=== PATIENT | male | born 1945 | race Caucasian/White ===

== ENCOUNTER → 2023-03-23 09:28 | Outpatient (REF) | payer OTHER, SELFPAY ==
[2023-03-23 09:40] VITALS: BP 154/70; BP_SYST 77
[2023-03-23 10:17] VITALS: BP 110/59; BP_SYST 67
[2023-03-23 11:29] LABS: Body Fluid Mononuclear 81.9 %; Body Fluid Polymorphonuclear 18.1 %; Body Fluid WBC 553 /CUMM
[2023-03-23 11:31] LABS: Body Fluid Second Tech CF
== END ==
LOC: RADI 09:28
PROVIDERS: ATTENDING PHYSICIAN Surgery
DX: R18.8 Other ascites (principal)
CPT/HCPCS: 49083; 89051

== ENCOUNTER 2023-03-25 06:30 | Day surgery (SDC) | payer OTHER, SELFPAY ==
[2023-03-18 10:14] LABS: Hematocrit 38.2 % (39.0-52.0); Hemoglobin 13.3 g/dL (13.0-18.0); Mean Corp Hgb Conc. 34.8 g/dL (33.0-37.0); Mean Corpuscular Hgb 32.6 pg (27.0-31.0); Mean Corpuscular Volume 93.6 fL (80.0-94.0); Mean Platelet Volume 11.3 fL (7.4-10.4); Platelet Count 83 10^3/uL (130-400); Red Blood Cell Count 4.08 10^6/uL (4.70-6.10); Red Cell Dist. Width 13.4 % (11.5-14.5); White Blood Cell Count 5.2 10^3/uL (4.8-10.8)
[2023-03-18 10:40] LABS: ALT (SGPT) 36 U/L (0-50); AST (SGOT) 47 U/L (17-59); Albumin 3.5 g/dl (3.5-5.0); Alkaline Phosphatase 165 U/L (38-126); Blood Urea Nitrogen 12 mg/dl (9-20); Calcium 8.8 mg/dl (8.4-10.2); Carbon Dioxide 32 mmol/L (22-30); Chloride 102 mmol/L (98-107); Glucose 143 mg/dl (70-99); Potassium 4.1 mmol/L (3.5-5.1); Sodium 135 mmol/L (135-145); Total Bilirubin 1.4 mg/dl (0.2-1.3); Total Protein 8.3 g/dl (6.3-8.2); eGFR > 60.00
[2023-03-18 11:54] LABS: INR 1.24; PT 15.4 Sec (11.4-14.6)
[2023-03-18 11:55] LABS: APTT 46.8 Sec (23.4-35.0)
[2023-03-18 14:25] VITALS: BMI 24.1
--- NOTE | 2023-03-21 12:12 | PTCARENOTE ---
Patients 2/2 EKG abnormal- reviewed by Dr. Almaraz- no additional interventions required
[2023-03-25] VITALS (11 sets, daily range): BP systolic 108–152; BP diastolic 56–80; BMI 24.1
--- NOTE | 2023-03-25 07:26 | HP.FOC2 ---
Focused History & Physical
Chief Complaint
HPI:
Chief Complaint: Umbilical hernia, left inguinal hernia
HPI / Indication for Planned Procedure: Patient is a 78-year-old male presenting for scheduled operative correction symptomatic left inguinal and umbilical hernia. History of chronic liver disease with cirrhosis, stable but with ascites. Underwent
paracentesis earlier this week for preoperative optimization.
Relevant Past Medical History: Other (Cirrhosis, hypothyroidism, thrombocytopenia, DJD, hypertension, diabetes, portal hypertension, depression,)
Relevant Social History: Tobacco Use (Former smoker)
Relevant Family History: Negative
Relevant Past Surgical History: Positive for (Bilateral knee replacements, paracentesis)
Review of Systems
Review of Pertinent Systems: All Systems Negative
Medication
See Medication form for detailed medications: Yes
Medication List (including Herbals & OTC):
furosemide 20 mg tablet 20 mg PO DAILY 12/06/17
metformin 500 mg tablet 500 mg PO BID@0800,1700 12/06/17
sitagliptin phosphate 100 mg tablet (Januvia) 100 mg PO DAILY 02/22/18
aspirin 81 mg tablet,delayed release 81 mg PO DAILY 02/05/22
spironolactone 100 mg tablet 100 mg PO DAILY 02/05/22
ferrous sulfate 325 mg (65 mg iron) tablet (FeroSul) 325 mg PO DAILY #100 tabs 02/07/22
carvedilol 3.125 mg tablet 3.125 mg PO BID 03/23/23
cholecalciferol (vitamin D3) 25 mcg (1,000 unit) capsule (Vitamin D3) 25 mcg PO DAILY 03/23/23
pantoprazole 40 mg tablet,delayed release (Protonix) 40 mg PO DAILY 03/23/23
trazodone 50 mg tablet 25 mg PO HS 03/23/23
Medications Reviewed: Yes
Allergies and Reactions
Patient has Allergies: Yes
Noted Allergies and Reactions:
Allergy/AdvReac Type Severity Reaction Status Date / Time
alprazolam [From Xanax] Allergy NAUSEA/VOMI Verified 03/23/23 11:35
TING
aspirin Allergy bad for Verified 03/23/23 11:35
liver
oxycodone Allergy hallucinati Verified 03/23/23 11:35
ons
tramadol Allergy extreme Verified 03/23/23 11:35
nausea
Pertinent Physical Exam
All Other Systems: Negative
Head/Neck: Normal
Lungs: Normal
Heart: Normal
Abdomen: Other (Left inguinal hernia, umbilical hernia)
Extremities: Normal
Neurological: Normal
Diagnosis / Assessment
78-year-old male presenting for scheduled operative correction symptomatic left inguinal hernia and umbilical hernia
Plan / Procedure
Open left inguinal herniorrhaphy with mesh, open umbilical herniorrhaphy with mesh
Anesthesia/Sedation to be done by Anesthesia Provider: Yes
[2023-03-25] MEDS: TYLENOL 1000 MG PO (08:16)
[2023-03-25] MEDS: NORMOSOL-R 1000 IV (08:20)
[2023-03-25 08:27] LABS: Glucose - Point of Care 118 mg/dl (70-99)
--- NOTE | 2023-03-25 08:42 | W.SUR.PREOP ---
Pre-Operative Surgical Note
-
I have examined this patient prior to the performance of the scheduled procedure.
The patient's condition is unchanged from the time of the current History and
Physical and the patient is able to undergo the scheduled procedure.
--- NOTE | 2023-03-25 11:25 | W.IMMPOSTOP ---
Addendum entered and electronically signed by Patrice Bhatti MD 03/25/23 14:19:
#[id number]
Original Note:
Surgical Immed Post Op Note
-
Primary Surgeon: Magy
Assisting Surgeon: None
Pre-op Diagnosis: LIH
UH
Post-op Diagnosis: LIH - indirect
UH - 1.5cm
Procedure Performed: open LIH repair with mesh
open UHR with mesh
Anesthesia Type: LMA + 1%lido/0.25% marcaine
Specimen / Cultures: none
Estimated Blood Loss: 8mL
Complications: none immediate
Operative Findings: Left indirect inguinal hernia. Kaylan tension-free mesh repair with Bard soft mesh 7.5 cm x 15 cm trimmed to accommodate the inguinal space. No peritoneal entry during inguinal herniorrhaphy.
Open umbilical hernia repair, fascial defect 1.5 cm. Mesh utilized for repair with Ventralex ST 4 cm with strap placed in preperitoneal location. Some ascites noted during peritoneal mobilization. Closure of fascial defect with 0 PDS as well and
multilayer subcutaneous closure in an effort to minimize postoperative ascites leak risk.
Daughter updated postop via phone call
[2023-03-25 11:35] LABS: Glucose - Point of Care 120 mg/dl (70-99)
== END 2023-03-25 13:12 | disposition home or self-care (01) ==
LOC: SDS 06:30
PROVIDERS: ATTENDING PHYSICIAN Surgery; FAMILY PHYSICIAN Family Medicine
DX: K40.90 Unilateral inguinal hernia, without obstruction or gangrene, not specified as recurrent (principal); K42.9 Umbilical hernia without obstruction or gangrene
CPT/HCPCS: 49591; 49505; 36415; 80053; 82962; 85027; 85610; 85730; 86850; 86900; 86901; 93005; C1781

== ENCOUNTER → 2023-04-13 08:41 | Outpatient (REF) | payer OTHER, SELFPAY ==
[2023-04-13 09:19] LABS: % Basophils 0.7 % (0-2); % Eosinophils 5.8 % (0-6); % Immature Granulocytes 0.5 % (0-0.5); % Lymphocytes 16.5 % (20.5-51.1); % Monocytes 18.8 % (1.7-9.3); % Neutrophils 57.7 % (42.2-75.2); Absolute Eosinophils 0.3 10^3/uL (0-0.7); Absolute Lymphocytes 0.7 10^3/uL (1.2-3.4); Absolute Monocytes 0.8 10^3/uL (0.1-0.6); Absolute Neutrophils 2.5 10^3/uL (1.4-6.5); Hemoglobin 12.2 g/dL (13.0-18.0); Mean Corp Hgb Conc. 35.9 g/dL (33.0-37.0); Mean Corpuscular Hgb 32.4 pg (27.0-31.0); Mean Corpuscular Volume 90.2 fL (80.0-94.0); Mean Platelet Volume 10.4 fL (7.4-10.4); Nucleated Red Blood Cells % 0 % (-); Platelet Count 92 10^3/uL (130-400); Red Blood Cell Count 3.77 10^6/uL (4.70-6.10); Red Cell Dist. Width 13.3 % (11.5-14.5); White Blood Cell Count 4.3 10^3/uL (4.8-10.8)
[2023-04-13 09:35] LABS: INR 1.28
[2023-04-13 10:54] LABS: ALT (SGPT) 30 U/L (0-50); AST (SGOT) 46 U/L (17-59); Albumin 3.2 g/dl (3.5-5.0); Alkaline Phosphatase 142 U/L (38-126); Blood Urea Nitrogen 13 mg/dl (9-20); Calcium 8.6 mg/dl (8.4-10.2); Carbon Dioxide 24 mmol/L (22-30); Chloride 104 mmol/L (98-107); Glucose 114 mg/dl (70-99); Potassium 4.1 mmol/L (3.5-5.1); Sodium 133 mmol/L (135-145); Total Bilirubin 1.7 mg/dl (0.2-1.3); Total Protein 7.7 g/dl (6.3-8.2); eGFR > 60.00
== END ==
LOC: REG 08:41
PROVIDERS: ATTENDING PHYSICIAN Surgery; FAMILY PHYSICIAN Family Medicine
DX: Z09 Encounter for follow-up examination after completed treatment for conditions other than malignant neoplasm (principal); K70.31 Alcoholic cirrhosis of liver with ascites
CPT/HCPCS: 36415; 80053; 85025; 85610

== ENCOUNTER → 2023-04-14 10:23 | Outpatient (REF) | payer OTHER, SELFPAY ==
[2023-04-14 11:10] VITALS: BP 143/78; BP_SYST 83
[2023-04-14 11:54] VITALS: BP 125/66
[2023-04-14 12:26] LABS: Body Fluid Mononuclear 69 %; Body Fluid Polymorphonuclear 31 %; Body Fluid WBC 377 /CUMM
[2023-04-14 12:27] LABS: Body Fluid Second Tech SD
== END ==
LOC: RADI 10:23
PROVIDERS: ATTENDING PHYSICIAN Surgery; FAMILY PHYSICIAN Family Medicine
DX: R18.8 Other ascites (principal)
CPT/HCPCS: 49083; 89051

== ENCOUNTER → 2023-06-10 13:59 | Outpatient (REF) | payer OTHER, SELFPAY ==
[2023-06-10 14:19] VITALS: BP 140/71; BP_SYST 79
[2023-06-10 15:20] VITALS: BP 126/68
[2023-06-10 15:55] LABS: Body Fluid Mononuclear 83.6 %; Body Fluid Polymorphonuclear 16.4 %; Body Fluid WBC 202 /CUMM
[2023-06-10 15:56] LABS: Body Fluid Second Tech FB
== END ==
LOC: RADI 13:59
PROVIDERS: ATTENDING PHYSICIAN Internal Medicine Gastroenterology
DX: R18.8 Other ascites (principal)
CPT/HCPCS: 49083; 89051

== ENCOUNTER → 2023-06-27 08:01 | Outpatient (REF) | payer OTHER, SELFPAY ==
[2023-06-27 08:35] VITALS: BP 125/74; BP_SYST 70
[2023-06-27 09:28] VITALS: BP 133/60; BP_SYST 68
[2023-06-27 09:53] LABS: Body Fluid Mononuclear 79.6 %; Body Fluid Polymorphonuclear 20.4 %; Body Fluid WBC 181 /CUMM
[2023-06-27 10:05] LABS: Body Fluid Second Tech ASW
== END ==
LOC: RADI 08:01
PROVIDERS: ATTENDING PHYSICIAN Internal Medicine Gastroenterology; FAMILY PHYSICIAN Family Medicine
DX: R18.8 Other ascites (principal)
CPT/HCPCS: 49083; 89051

== ENCOUNTER → 2023-06-28 08:10 | Outpatient (REF) | payer OTHER, SELFPAY | LOC: PAVMRI 08:10 | PROVIDERS: ATTENDING PHYSICIAN Physician Assistant; FAMILY PHYSICIAN Family Medicine | DX: K70.31 Alcoholic cirrhosis of liver with ascites (principal) | CPT/HCPCS: 74183; A9581 ==

== ENCOUNTER → 2023-07-18 11:39 | Outpatient (REF) | payer OTHER, SELFPAY ==
[2023-07-18 12:49] LABS: % Basophils 0.2 % (0-2); % Eosinophils 1.4 % (0-6); % Immature Granulocytes 0.4 % (0-0.5); % Lymphocytes 9.6 % (20.5-51.1); % Neutrophils 75.4 % (42.2-75.2); Absolute Eosinophils 0.1 10^3/uL (0-0.7); Absolute Lymphocytes 0.5 10^3/uL (1.2-3.4); Absolute Monocytes 0.7 10^3/uL (0.1-0.6); Absolute Neutrophils 4.2 10^3/uL (1.4-6.5); Hematocrit 34.4 % (39.0-52.0); Hemoglobin 11.7 g/dL (13.0-18.0); Mean Corpuscular Hgb 32.1 pg (27.0-31.0); Mean Corpuscular Volume 94.2 fL (80.0-94.0); Mean Platelet Volume 11.1 fL (7.4-10.4); Nucleated Red Blood Cells % 0 % (-); Platelet Count 99 10^3/uL (130-400); Red Blood Cell Count 3.65 10^6/uL (4.70-6.10); Red Cell Dist. Width 15.4 % (11.5-14.5); White Blood Cell Count 5.5 10^3/uL (4.8-10.8)
[2023-07-18 13:00] LABS: INR 1.29
[2023-07-18 13:15] LABS: ALT (SGPT) 54 U/L (0-50); AST (SGOT) 98 U/L (17-59); Alkaline Phosphatase 255 U/L (38-126); Blood Urea Nitrogen 47 mg/dl (9-20); Calcium 8.9 mg/dl (8.4-10.2); Carbon Dioxide 27 mmol/L (22-30); Chloride 102 mmol/L (98-107); Glucose 194 mg/dl (70-99); Potassium 4.8 mmol/L (3.5-5.1); Sodium 135 mmol/L (135-145); Total Protein 7.8 g/dl (6.3-8.2); eGFR 51.77
[2023-07-18 21:07] LABS: AFP Male/Tumor Marker 1.35 ng/ml
== END ==
LOC: REG 11:39
PROVIDERS: Internal Medicine Gastroenterology; ATTENDING PHYSICIAN Physician Assistant; FAMILY PHYSICIAN Family Medicine
DX: K70.31 Alcoholic cirrhosis of liver with ascites (principal); Z09 Encounter for follow-up examination after completed treatment for conditions other than malignant neoplasm
CPT/HCPCS: 36415; 80053; 82105; 85025; 85610

== ENCOUNTER → 2023-07-19 07:30 | Outpatient (REF) | payer OTHER, SELFPAY ==
[2023-07-19 07:45] VITALS: BP 112/69; BP_SYST 71
[2023-07-19 08:55] VITALS: BP 111/57; BP_SYST 61
[2023-07-19 09:16] VITALS: BP 111/57
[2023-07-19 10:35] LABS: Body Fluid Polymorphonuclear 13.6 %; Body Fluid WBC 103 /CUMM
[2023-07-19 10:36] LABS: Body Fluid Mononuclear 86.4 %
[2023-07-19 11:47] LABS: Body Fluid Second Tech CMB
== END ==
LOC: RADI 07:30
PROVIDERS: ATTENDING PHYSICIAN Internal Medicine Gastroenterology; FAMILY PHYSICIAN Family Medicine
DX: R18.8 Other ascites (principal)
CPT/HCPCS: 49083; 89051

== ENCOUNTER 2023-07-19 09:12 | Outpatient (RCR) | payer OTHER, SELFPAY ==
[2023-07-19 09:20] VITALS: BP 94/46
[2023-07-19 09:38] VITALS: BP 94/46
[2023-07-19] MEDS: FLEXBUMIN 100 IV ×2 (09:38→11:03)
[2023-07-19 11:03] VITALS: BP 113/56
[2023-07-19 12:31] VITALS: BP 104/58
[2023-07-19] MEDS: FLEXBUMIN 50 IV (12:31)
[2023-07-19 13:15] VITALS: BP 113/56
== END 2023-08-14 23:59 | disposition home or self-care (01) ==
LOC: OID 09:12
PROVIDERS: ATTENDING PHYSICIAN Internal Medicine Gastroenterology; FAMILY PHYSICIAN Family Medicine
DX: K70.31 Alcoholic cirrhosis of liver with ascites (principal); I85.00 Esophageal varices without bleeding
CPT/HCPCS: 96365; 96366; P9047

== ENCOUNTER 2023-08-11 14:33 | Emergency (ER) | payer OTHER, SELFPAY ==
[2023-08-11 14:35] VITALS: BP 102/60
[2023-08-11 16:32] LABS: % Basophils 0.2 % (0-2); % Eosinophils 1.5 % (0-6); % Immature Granulocytes 0.2 % (0-0.5); % Lymphocytes 7.2 % (20.5-51.1); % Monocytes 11.5 % (1.7-9.3); % Neutrophils 79.4 % (42.2-75.2); Absolute Eosinophils 0.1 10^3/uL (0-0.7); Absolute Lymphocytes 0.4 10^3/uL (1.2-3.4); Absolute Monocytes 0.7 10^3/uL (0.1-0.6); Absolute Neutrophils 4.7 10^3/uL (1.4-6.5); Hematocrit 28.9 % (39.0-52.0); Hemoglobin 10.1 g/dL (13.0-18.0); Mean Corp Hgb Conc. 34.9 g/dL (33.0-37.0); Mean Corpuscular Hgb 32.7 pg (27.0-31.0); Mean Corpuscular Volume 93.5 fL (80.0-94.0); Mean Platelet Volume 10.2 fL (7.4-10.4); Nucleated Red Blood Cells % 0 % (-); Platelet Count 66 10^3/uL (130-400); Red Blood Cell Count 3.09 10^6/uL (4.70-6.10); Red Cell Dist. Width 14.7 % (11.5-14.5); White Blood Cell Count 5.9 10^3/uL (4.8-10.8)
[2023-08-11 16:43] LABS: ALT (SGPT) 55 U/L (0-50); AST (SGOT) 70 U/L (17-59); Alkaline Phosphatase 247 U/L (38-126); Ammonia 21 umol/L (9-30); Blood Urea Nitrogen 31 mg/dl (9-20); Calcium 8.8 mg/dl (8.4-10.2); Carbon Dioxide 22 mmol/L (22-30); Chloride 108 mmol/L (98-107); Glucose 137 mg/dl (70-99); Potassium 5.2 mmol/L (3.5-5.1); Sodium 134 mmol/L (135-145); Total Bilirubin 2.1 mg/dl (0.2-1.3); Total Protein 7.5 g/dl (6.3-8.2); eGFR > 60.00
[2023-08-11] MEDS: KEFLEX 500 MG PO (17:38)
[2023-08-11] MEDS: ADACEL 0.5 ML IM (17:38)
--- NOTE | 2023-08-11 18:55 | ED.GENMED ---
History of Present Illness
General
Chief Complaint: Fall
Source: patient and family
Exam Limitations: none
Time Seen by Provider: 08/11/23 15:04
Nursing documentation reviewed up to this point in time: agreed with
History of Present Illness
History of Present Illness:
78-year-old male with past medical history of paroxysmal A-fib not currently on anticoagulation, liver cirrhosis previous alcoholism, diabetes presenting to the emergency department today with concerns after a fall ground-level fall where he got
tripped up at his knees bilaterally has been able to ambulate since denies any head trauma also according to family he has been compulsively buying things and has been acting oddly recently. He denies any concerns in this regard. Denies nausea
vomiting chest pain shortness of breath. Numbness weakness.
Past History
Past History
ED Past Medical History: Arrthythmia (afib), NIDDM, Other (OA) and Other (alcohol related cirrhosis)
ED Past Surgical History: Orthopedic ( B TKA 02/28/18)
Social History
Alcohol: Former
Personal:
Living: with family
Review of Systems
Review of Systems
Allergies reviewed?: Yes
All Other Systems: ROS reviewed and negative except as documented in HPI and ROS
Phy Exam
Physical Exam
Physical Exam:
GENERAL: Alert , in no apparent distress
EYE: pupils equal and reactive
NECK: Supple, no significant adenopathy.
ENT: o/p clr, mmm.
CARDIAC: Regular rate and rhythm .
LUNGS: Clear breath sounds bilaterally, no acute respiratory distress, no wheezes/rales/rhonchi
ABDOMEN: Soft, without focal tenderness, no r/g, no cvat
NEUROLOGICAL: Alert and oriented, no focal neuro deficits
SKIN: Superficial abrasions overlying the patella bilaterally good range of motion of the knees bilaterally. No redness or warmth mild tenderness. Warm and dry, skin intact.
MUSCULOSKELETAL: No edema, well perfused.
PSYCH: Normal and appropriate interaction.
Course
Orders/Labs/Results
Orders:
Orders
08/11/23 15:33
EKG [Electrocardiogram (*1)] Urgent
Reason for Study: Fatigue / Weakness
CT Head W/o Iv Contrast Urgent
Comment:
Reason For Exam: AMS
Urinalysis Reflex To Culture Urgent
08/11/23 15:35
EKG- Treatment ONCE
08/11/23 15:36
Knee, Left 4 or More Views [CR Knee - Left 4 Or More View*] Urgent
Comment:
Reason For Exam: knee pain after fall
Knee, Right 4 or More Views [CR Knee- Right 4 Or More View*] Urgent
Comment:
Reason For Exam: knee pain after fall
08/11/23 16:19
Ammonia Urgent
CBC/With Diff [Complete Blood Count/With Diff] Urgent
CMP [Comprehensive Metabolic Panel] Urgent
08/11/23 17:06
Crisis Consult Urgent
Reason for Consult: odd behavior per family
Pt Eval And Treat Urgent
Activity Level: Ambulate
08/11/23 17:10
Cephalexin Monohydrate [Keflex] 500 mg PO NOW STA
Tetanus/Diphth/Acelpertussis [Adacel] 0.5 ml IM .ONCE ONE
Abnormal Lab Results
08/11/23
16:19
RBC 3.09 L 10^6/uL
(4.70-6.10)
Hgb 10.1 L g/dL
(13.0-18.0)
Hct 28.9 L %
(39.0-52.0)
MCH 32.7 H pg
(27.0-31.0)
RDW 14.7 H %
(11.5-14.5)
Plt Count 66 L 10^3/uL
(130-400)
Absolute Lymphs (auto) 0.4 L 10^3/uL
(1.2-3.4)
Absolute Monos (auto) 0.7 H 10^3/uL
(0.1-0.6)
Neutrophils % 79.4 H %
(42.2-75.2)
Lymphocytes % 7.2 L %
(20.5-51.1)
Monocytes % 11.5 H %
(1.7-9.3)
Sodium 134 L mmol/L
(135-145)
Potassium 5.2 H mmol/L
(3.5-5.1)
Chloride 108 H mmol/L
(98-107)
BUN 31 H mg/dl
(9-20)
Glucose 137 H mg/dl
(70-99)
Total Bilirubin 2.1 H mg/dl
(0.2-1.3)
AST 70 H U/L
(17-59)
ALT 55 H U/L
(0-50)
Alkaline Phosphatase 247 H U/L
(38-126)
Albumin 3.0 L g/dl
(3.5-5.0)
08/11/23 16:19
08/11/23 16:19
Vital Signs
Initial and Last Documented VS:
Initial Vital Signs
Temp Pulse Resp BP Pulse Ox
97.8 F 78 18 102/60 96
08/11/23 14:35 08/11/23 14:35 08/11/23 14:35 08/11/23 14:35 08/11/23 14:35
Last Documented Vital Signs
Temp Pulse Resp BP Pulse Ox
97.8 F 78 18 102/60 96
08/11/23 14:35 08/11/23 14:35 08/11/23 14:35 08/11/23 14:35 08/11/23 14:35
MDM/Problems Addressed
MDM/Problems Addressed:
78-year-old male presenting to the emergency department today with concerns after a ground-level fall hitting both knees. Good range of motion of the knees but tenderness to the area superficial abrasions will start on Keflex also given a tetanus
shot x-rays without signs of fracture. Additionally primary care doctor as well as the daughter is concerned that he has been acting somewhat oddly recently though he is fully alert and oriented here and denies any concerns of this nature. He was
willing to get a head CT and labs that did not show any emergent findings. Otherwise case was discussed with the primary care doctor who will have him closely follow-up as an outpatient. He was initially seen by the food service worker and he denied
wanting any additional resources.
*Critical Care Note
Total Time (30-74mins, 75-104mins- exclusive of procedures): Not Applicable
ED Attending Note
-
Portions of this chart may have been created with voice recognition software.� Occasional wrong word or��sound alike� substitutions may have occurred due to the inherent limitations of voice recognition software.
Discharge Plan
Departure
Patient Disposition: Home (Routine Discharge)
Date of Disposition: 08/11/23
Time of Disposition: 18:55
Patient with high blood pressure during this ER visit?: No
Condition: Good
Covid-19: Not Applicable
Discharge Problem:
Injury of knee, Abrasion of skin, Fall
Instructions: Wound Care (DC), Contusion (DC)
Prescriptions:
New
cephalexin 500 mg capsule
500 mg PO Q8H 3 Days Qty: 9 0RF
No Action
metformin 500 MG tablet
500 mg PO BID@0800,1700
furosemide 20 MG tablet
40 mg PO DAILY
Januvia 100 MG tablet
100 mg PO DAILY
spironolactone 100 mg tablet
100 mg PO DAILY
ferrous sulfate [FeroSul] 325 mg (65 mg iron) Tablet
325 mg PO DAILY Qty: 100 0RF
ibuprofen 200 mg tablet
400 mg PO Q6HPRN PRN (Reason: moderate pain) Qty: 1 0RF
trazodone 50 mg Tablet
25 mg PO HS
carvedilol 3.125 mg Tablet
3.125 mg PO BID
cholecalciferol (vitamin D3) [Vitamin D3] 25 mcg (1,000 unit) Capsule
25 mcg PO DAILY
pantoprazole [Protonix] 40 mg tablet,delayed release (DR/EC)
40 mg PO DAILY
Referrals:
Carlos Chaparro MD [Family Provider] -
Activity Restrictions/Additional Instructions:
You came to the emergency department today after a fall. You additionally had a metabolic workup that did not show any specific emergent findings you had a slightly high potassium slightly low sodium level. You had slightly elevated liver function
tests. He had a head CT without emergent findings x-rays without signs of fracture. Please take the antibiotic to reduce risk of infection of your scrapes on your knees please keep the area clean and covered. Return to the emergency department
any worsening, new or concerning symptoms.
Interventions
Interventions:
*Risk Screen - Suicide Last Done: 08/11/23 14:35
*General Assessment Last Done: 08/11/23 14:35
*Neglect/Abuse Screening Last Done: 08/11/23 14:35
ED- Fall Risk Assessment Last Done: 08/11/23 18:30
*ED COVID-19 Vaccine History Last Done: 08/11/23 14:35
ED-Musculoskeletal Assessment Last Done: 08/11/23 14:48
ED- Neurological Assessment Last Done: 08/11/23 14:48
ED-Skin Assessment Last Done: 08/11/23 14:57
Discharge Date and Time
Print Language: OCCITAN
== END 2023-08-11 19:23 | disposition home or self-care (01) ==
LOC: EMR 14:33
PROVIDERS: Physician Assistant; EMERGENCY PHYSICIAN Emergency Medicine; FAMILY PHYSICIAN Family Medicine
DX: S89.91XA Unspecified injury of right lower leg, initial encounter (principal); S80.219A Abrasion, unspecified knee, initial encounter; W19.XXXA Unspecified fall, initial encounter; Z23 Encounter for immunization; I48.91 Unspecified atrial fibrillation; E11.9 Type 2 diabetes mellitus without complications; M19.90 Unspecified osteoarthritis, unspecified site; K70.30 Alcoholic cirrhosis of liver without ascites; R20.0 Anesthesia of skin; Z96.653 Presence of artificial knee joint, bilateral
CPT/HCPCS: 99284; 90471; 70450; 73564; 80053; 82140; 85025; 90715; 93005

== ENCOUNTER → 2023-08-16 06:34 | Outpatient (REF) | payer OTHER, SELFPAY ==
[2023-08-16 07:15] VITALS: BP 155/78; BP_SYST 82
[2023-08-16 08:32] VITALS: BP 106/59; BP_SYST 80
[2023-08-16 08:40] VITALS: BP 106/59
[2023-08-16 11:07] LABS: Body Fluid Polymorphonuclear 38.8 %; Body Fluid WBC 142 /CUMM
[2023-08-16 11:08] LABS: Body Fluid Mononuclear 61.2 %
[2023-08-16 11:14] LABS: Body Fluid Second Tech HB
== END ==
LOC: RADI 06:34
PROVIDERS: ATTENDING PHYSICIAN Internal Medicine Gastroenterology
DX: R18.8 Other ascites (principal)
CPT/HCPCS: 49083; 89051

== ENCOUNTER 2023-08-16 08:49 | Outpatient (RCR) | payer OTHER, SELFPAY ==
[2023-08-16] MEDS: FLEXBUMIN 50 IV (09:05)
[2023-08-16 09:06] VITALS: BP 101/52
[2023-08-16 10:02] VITALS: BP 113/57
[2023-08-16] MEDS: FLEXBUMIN 100 IV ×2 (10:02→11:38)
[2023-08-16 11:38] VITALS: BP 106/55
[2023-08-16 13:16] VITALS: BP 102/54
== END 2023-09-14 23:59 | disposition home or self-care (01) ==
LOC: OID 08:49
PROVIDERS: ATTENDING PHYSICIAN Internal Medicine Gastroenterology; PRIMARYCARE PHYSICIAN Family Medicine
DX: K70.31 Alcoholic cirrhosis of liver with ascites (principal); I85.00 Esophageal varices without bleeding
CPT/HCPCS: 49083; 89051; 96365; 96366; P9047

== ENCOUNTER 2023-08-29 07:34 | Inpatient (IN) | payer OTHER, SELFPAY ==
[2023-08-29] VITALS (14 sets, daily range): BP systolic 80–105; BP diastolic 41–63; BMI 23.1
--- NOTE | 2023-08-29 04:16 | ED.GENMED ---
History of Present Illness
<FANNY Flores - Last Filed: 08/29/23 06:01>
General
Chief Complaint: Breathing Problem
Source: patient
Exam Limitations: none
Time Seen by Provider: 08/29/23 04:07
Nursing documentation reviewed up to this point in time: agreed with
History of Present Illness
History of Present Illness:
78 year old male presents for evaluation of shortness of breath. Pt reports that approximately 3-4 hours ago he began experiencing SOB which he describes as 'difficulty catching my breath.' Pt has a history of alcoholic cirrhosis complicated by
ascites; recently underwent paracentesis on 08/15 via [facility]. Pt also underwent paracentesis in July and April of 2023. Pt currently exhibiting abdominal distension due to ascites fluid. Also with several blisters on feet and redness of distal
right lower extremity. He denies CP, N/V, dysphagia, fever, cough, recent URI, urinary symptoms, changes in bowel habits, and confusion.
Past History
<FANNY Flores - Last Filed: 08/29/23 06:01>
Past History
ED Past Medical History: Arrthythmia (afib), NIDDM, Other (OA) and Other (alcohol related cirrhosis)
ED Past Surgical History: Orthopedic ( B TKA 02/28/18)
Social History
Alcohol: Former
Personal:
Living: with family
Review of Systems
<FANNY Flores - Last Filed: 08/29/23 06:01>
Review of Systems
Allergies reviewed?: Yes
Constitutional: Reports no symptoms
EENT: Reports no symptoms
Respiratory: Reports trouble breathing
Cardiac: Reports no symptoms
ABD/GI: Reports other (distended abdomen due to ascites )
: Reports no symptoms
Musculoskeletal: Reports no symptoms
Skin: Reports no symptoms
Neurological: Reports no symptoms
Endocrine: Reports no symptoms
Hematologic/Lymphatic: Reports no symptoms
Psychiatric: Reports no symptoms
Phy Exam
<FANNY Flores - Last Filed: 08/29/23 06:01>
General Physical Exam
General Presentation: well appearing
General age: appears stated age
General Skin: warm
General Habitus: elderly and frail
General Mental: alert
General Hydration: appears well hydrated
Cardiovascular Exam
Cardiovascular Exam: regular rate/rhythm
Pulmonary Exam
Pulmonary Exam: no respiratory distress and other (faint crackles in lower lobes BL)
Gastrointestinal Exam
Gastrointestinal Exam: ascites and distended
Neurological Exam
Neurological Exam: alert and oriented x3
Skin Exam
Skin Exam: erythema (Right lower extremity ) and other (Several ulcers on pt's left and right feet. Brawny erythema on right anterior lower extremity. Single abrasion on left and right knees due to previous fall in various stages of healing. )
Scores
<FANNY Flores - Last Filed: 08/29/23 06:01>
Heart Failure Risk
Heart Failure Risk Score: Not Applicable
Course
<FANNY Flores - Last Filed: 08/29/23 06:01>
Orders/Labs/Results
Orders:
Orders
08/29/23 04:34
Electrocardiogram (*1) Urgent
Reason for Study: Shortness of Breath
EKG- Treatment ONCE
08/29/23 04:35
Complete Blood Count/With Diff Urgent
Comprehensive Metabolic Panel Urgent
Lipase Urgent
NT-proBNP Urgent
Protime/PTT Urgent
Troponin I Urgent
CR Chest - 2 Views Urgent
Comment:
Reason For Exam: sob
08/29/23 05:02
Consult Interventional Radiology [IRAD CONSULT] Urgent
Consulting Provider: Kenny Lam
Was physician already notified: No
Reason for Consult/Procedure: recurrent, symptomatic ascites
Acknowledgement that appropriate orders are entered: Yes
08/29/23 05:05
Consult Notification Routine
Specialty to Notify: IRAD (Interventional Radiology)
08/29/23 05:21
Lactic Acid Urgent
Blood Culture Urgent
YANIRA Source: Blood/Venous
Specimen Description:
Abnormal Lab Results
08/29/23 08/29/23
04:35 05:21
RBC 2.99 L 10^6/uL
(4.70-6.10)
Hgb 10.1 L g/dL
(13.0-18.0)
Hct 28.1 L %
(39.0-52.0)
MCH 33.8 H pg
(27.0-31.0)
RDW 15.1 H %
(11.5-14.5)
Plt Count 76 L 10^3/uL
(130-400)
MPV 12.1 H fL
(7.4-10.4)
Abs Immat Gran (auto) 0.1 H 10^3/uL
(0-0.05)
Absolute Neuts (auto) 7.9 H 10^3/uL
(1.4-6.5)
Absolute Lymphs (auto) 0.4 L 10^3/uL
(1.2-3.4)
Immature Gran % 0.6 H %
(0-0.5)
Neutrophils % 87.7 H %
(42.2-75.2)
Lymphocytes % 4.3 L %
(20.5-51.1)
PT 19.5 H Sec
(11.4-14.6)
APTT 58.7 H Sec
(23.4-35.0)
Sodium 133 L mmol/L
(135-145)
Carbon Dioxide 18 L mmol/L
(22-30)
BUN 61 H mg/dl
(9-20)
Creatinine 2.7 H mg/dL
(0.7-1.3)
Glucose 134 H mg/dl
(70-99)
Lactic Acid 3.3 H mmol/L
(0.7-2.0)
Total Bilirubin 1.9 H mg/dl
(0.2-1.3)
Alkaline Phosphatase 202 H U/L
(38-126)
Albumin 2.6 L g/dl
(3.5-5.0)
Lipase 327 H U/L
(23-300)
08/29/23 04:35
08/29/23 04:35
Vital Signs
Initial and Last Documented VS:
Initial Vital Signs
Temp Pulse Resp BP Pulse Ox
97.4 F 89 17 87/48 94
08/29/23 04:06 08/29/23 04:06 08/29/23 04:06 08/29/23 04:06 08/29/23 04:06
Last Documented Vital Signs
Temp Pulse Resp BP Pulse Ox
97.4 F 86 18 93/63 96
08/29/23 04:06 08/29/23 05:11 08/29/23 05:11 08/29/23 05:11 08/29/23 05:11
<Milagro Juarez, DO - Last Filed: 08/29/23 05:55>
Orders/Labs/Results
Orders:
Orders
08/29/23 04:34
Electrocardiogram (*1) Urgent
Reason for Study: Shortness of Breath
EKG- Treatment ONCE
08/29/23 04:35
Complete Blood Count/With Diff Urgent
Comprehensive Metabolic Panel Urgent
Lipase Urgent
NT-proBNP Urgent
Protime/PTT Urgent
Troponin I Urgent
CR Chest - 2 Views Urgent
Comment:
Reason For Exam: sob
08/29/23 05:02
Consult Interventional Radiology [[facility] CONSULT] Urgent
Consulting Provider: Kenny Lam
Was physician already notified: No
Reason for Consult/Procedure: recurrent, symptomatic ascites
Acknowledgement that appropriate orders are entered: Yes
08/29/23 05:05
Consult Notification Routine
Specialty to Notify: IRAD (Interventional Radiology)
08/29/23 05:21
Lactic Acid Urgent
Blood Culture Urgent
YANIRA Source: Blood/Venous
Specimen Description:
Abnormal Lab Results
08/29/23 08/29/23
04:35 05:21
RBC 2.99 L 10^6/uL
(4.70-6.10)
Hgb 10.1 L g/dL
(13.0-18.0)
Hct 28.1 L %
(39.0-52.0)
MCH 33.8 H pg
(27.0-31.0)
RDW 15.1 H %
(11.5-14.5)
Plt Count 76 L 10^3/uL
(130-400)
MPV 12.1 H fL
(7.4-10.4)
Abs Immat Gran (auto) 0.1 H 10^3/uL
(0-0.05)
Absolute Neuts (auto) 7.9 H 10^3/uL
(1.4-6.5)
Absolute Lymphs (auto) 0.4 L 10^3/uL
(1.2-3.4)
Immature Gran % 0.6 H %
(0-0.5)
Neutrophils % 87.7 H %
(42.2-75.2)
Lymphocytes % 4.3 L %
(20.5-51.1)
PT 19.5 H Sec
(11.4-14.6)
APTT 58.7 H Sec
(23.4-35.0)
Sodium 133 L mmol/L
(135-145)
Carbon Dioxide 18 L mmol/L
(22-30)
BUN 61 H mg/dl
(9-20)
Creatinine 2.7 H mg/dL
(0.7-1.3)
Glucose 134 H mg/dl
(70-99)
Lactic Acid 3.3 H mmol/L
(0.7-2.0)
Total Bilirubin 1.9 H mg/dl
(0.2-1.3)
Alkaline Phosphatase 202 H U/L
(38-126)
Albumin 2.6 L g/dl
(3.5-5.0)
Lipase 327 H U/L
(23-300)
08/29/23 04:35
08/29/23 04:35
Vital Signs
Initial and Last Documented VS:
Initial Vital Signs
Temp Pulse Resp BP Pulse Ox
97.4 F 89 17 87/48 94
08/29/23 04:06 08/29/23 04:06 08/29/23 04:06 08/29/23 04:06 08/29/23 04:06
Last Documented Vital Signs
Temp Pulse Resp BP Pulse Ox
97.4 F 86 18 93/63 96
08/29/23 04:06 08/29/23 05:11 08/29/23 05:11 08/29/23 05:11 08/29/23 05:11
Rachellt;FANNY Flores - Last Filed: 08/29/23 06:01>
MDM/Problems Addressed
Differential Diagnosis Includes:
symptomatic ascites, hepatorenal syndrome, PNA, anemia
<FANNY Flores - Last Filed: 08/29/23 06:01>
*Critical Care Note
Total Time (30-74mins, 75-104mins- exclusive of procedures): Not Applicable
<Milagro Juarez DO - Last Filed: 08/29/23 05:55>
*Radiology
Radiology exam reviewed: preliminary read by ED provider (Chest x-ray shows markedly limited lung expansion related to severe ascites. No evidence of infiltrate nor CHF.)
*Pulse Oximetry
Patient hypoxic: no
*EKG
Interpreted by ED Provider?: Yes
Comparison EKG: no changes (Unchanged from previous July 2023)
Rate: normal
Rhythm: sinus
[place]: left axis deviation
Interval: first degree heart block
QRS Pattern: right bundle branch block
Ischemia: non-specific ST changes
*Household Assistant Interpretation
Rate: normal
Interpretation: normal
Rhythm: sinus
*Critical Care Note
Total Time (30-74mins, 75-104mins- exclusive of procedures): Not Applicable
ED Attending Note
<FANNY Flores - Last Filed: 08/29/23 06:01>
-
Portions of this chart may have been created with voice recognition software.� Occasional wrong word or��sound alike� substitutions may have occurred due to the inherent limitations of voice recognition software.
<Mliagro Juarez DO - Last Filed: 08/29/23 05:55>
ED Attending Note
Patient seen and examined by attending physician: Yes
I performed the substantive portion of visit, reviewed & personally made and approve the management plan that is documented in note by myself or UMM.: Yes
ED Attending Note:
This is a 78-year-old gentleman who has history of alcoholic cirrhosis with recurrent ascites requiring sporadic paracentesis. History of Lannec's cirrhosis. He had undergone paracentesis February and then April of this year with drainage of
approximately 4 L of fluid. He then required paracentesis July 18 with drainage of near 10 L of fluid and then again August 15 with removal of 10 L of fluid.
He complains of shortness of breath, feeling that he cannot take a deep breath that began last night, worse with lying down. He has not had a cough nor fever, he denies abdominal pain and denies feeling of tenseness of his abdomen.
He has been compliant with diuretics including furosemide and spironolactone, compliant with low-sodium diet.
He denies chest pain or palpitations, no weakness nor dizziness.
No prior episodes of dyspnea, difficulty taking a deep breath.
He did suffer a trip and fall August 10 with resultant bilateral anterior knee abrasions, evaluated in this ED at that time. Bilateral knee abrasions are slowly healing.
He also notes chronic superficial ulcers left leg and a friction ulcer left plantar foot at first MTP joint that he attributes to his sandals rubbing. The left lower leg has some brawny erythema and is mildly warm to touch. It is unclear if this
is chronic in nature. Patient denies pain and has not been running a fever.
He follows regularly with GI, Dr. Kathryn Hardy.
He is also followed regularly with his PCP, Dr. Jer Wan who is also a friend of his.
He resides at home with his who has advanced Alzheimer's disease, currently on hospice care. His daughter resides nearby.
GENERAL: 78-year-old gentleman appears somewhat older than stated age, mildly frail in appearance. He is awake and alert, pleasant, easily communicative. Very mild resting tachypnea is noted but able to speak in full sentences. Mild hypotension
noted. Afebrile. Room air pulse ox 94 to 95%.
EYE: anicteric
NECK: Supple, nontender, no meningismus, no significant adenopathy. No JVD.
ENT: oral mucosa is minimally dry. No rhinorrhea.
CARDIAC: Regular rate and rhythm. no murmur.
LUNGS: Mild resting tachypnea, able to speak in full sentences. Scant bibasilar rales otherwise clear to auscultation.
ABDOMEN: Significantly distended with positive palpable fluid wave. Nontender. Normoactive bowel sounds.
NEUROLOGICAL: Alert and oriented x3, no focal neuro deficits.
SKIN: Warm and dry, mildly pale in color, left lower extremity has several small superficial ulcers with focal dry eschar, few linear scabbed abrasions anterior lower leg. There is a superficial friction ulcer left plantar foot at the first MTP
joint with very minimal local erythema. There is moderate erythema to the left anteromedial lower leg that is mildly warm to touch. No palpable tenderness. No lymphangitis. There is subacute abrasions with mild ulcer formation bilateral anterior
knees. No erythema.
MUSCULOSKELETAL: No C/C/E. Diminished peripheral pulses bilateral DP and posterior tibial. No palpable tenderness.
PSYCH: Normal and appropriate interaction.
I highly suspect recurrent severe symptomatic ascites. Must consider CHF, less likely pneumonia.
Will check labs, chest x-ray, EKG.
There are some brawny erythema left lower leg surrounding what appears to be some chronic very superficial skin ulcers left leg. At this point is unclear if this erythema is chronic in nature versus acute. He is afebrile but mildly hypotensive.
Will check lactic acid and will check blood cultures as well.
With chronic liver disease, ascites he is certainly at risk for immunocompromise.
Will plan for IR consult this morning for paracentesis.
08/29/2023 0552 AM
Labs show stable chronic anemia, stable chronic thrombocytopenia. Normal white blood cell count however uptrend in neutrophils compared to previous.
BUN and creatinine have trended up significantly from 31/1.2 to now 61/2.7. I have significant concern for hepatorenal syndrome versus concern for early sepsis.
Lactic acid is elevated at 3.3.
Will admit to hospitalist service. Will initiate IV antibiotics for coverage of what I suspect is left lower extremity cellulitis.
Consult placed for IR.
Discharge Plan
Departure
Patient Disposition: Admit
Date of Disposition: 08/29/23
Time of Disposition: 05:51
Admit to: Med/Surg
Admit to doctor: Ester
Presentation/result/management discussed w/ accepting MD/DO: Hospitalist
Discharge Problem:
Recurrent symptomatic ascites, Cellulitis of left lower extremity, ARF, concern for hepatorenal syndrome, Lactic acidosis, r/o sepsis
Prescriptions:
No Action
metformin 500 MG tablet
500 mg PO BID
furosemide 20 MG tablet
40 mg PO DAILY
Januvia 100 MG tablet
100 mg PO DAILY
spironolactone 100 mg tablet
100 mg PO DAILY
ferrous sulfate [FeroSul] 325 mg (65 mg iron) Tablet
325 mg PO DAILY Qty: 100 0RF
trazodone 50 mg Tablet
50 mg PO HS PRN (Reason: sleep)
carvedilol 3.125 mg Tablet
3.125 mg PO BID
cholecalciferol (vitamin D3) [Vitamin D3] 25 mcg (1,000 unit) Capsule
25 mcg PO DAILY
pantoprazole [Protonix] 40 mg tablet,delayed release (DR/EC)
40 mg PO DAILY
Referrals:
Carlos Chaparro MD [Family Provider] -
Interventions
Interventions:
*Risk Screen - Suicide Last Done: 08/29/23 04:06
*General Assessment Last Done: 08/29/23 04:06
*Neglect/Abuse Screening Last Done: 08/29/23 04:06
ED- Fall Risk Assessment Last Done: 08/29/23 04:35
*ED COVID-19 Vaccine History Last Done: 08/29/23 04:06
ED- Cardiac Assessment Last Done: 08/29/23 04:35
ED- Pulmonary Assessment Last Done: 08/29/23 04:35
Discharge Date and Time
Print Language: LAO
--- NOTE | 2023-08-29 04:45 | EDRN ---
Pt lives with his daughter and his who he says is on palliative care. Pt says he had 10L removed from his abdomen earlier in August. He knows when he has to go to the bathroom but he often cannot get to the bathroom in time. Pt arrived
incontinent of soft brown stool - some was caked around his penis/scrotum. Perineal care provided. Linens changed and pt placed into hospital gown. Pt has multiple healing abrasions on L lower leg/foot from a recent fall. Pt says he uses a
wooden cane at home.
[2023-08-29 04:49] LABS: % Basophils 0.2 % (0-2); % Eosinophils 0.7 % (0-6); % Immature Granulocytes 0.6 % (0-0.5); % Lymphocytes 4.3 % (20.5-51.1); % Monocytes 6.5 % (1.7-9.3); % Neutrophils 87.7 % (42.2-75.2); Absolute Eosinophils 0.1 10^3/uL (0-0.7); Absolute Immature Granulocytes 0.1 10^3/uL (0-0.05); Absolute Lymphocytes 0.4 10^3/uL (1.2-3.4); Absolute Monocytes 0.6 10^3/uL (0.1-0.6); Absolute Neutrophils 7.9 10^3/uL (1.4-6.5); Hematocrit 28.1 % (39.0-52.0); Hemoglobin 10.1 g/dL (13.0-18.0); Mean Corp Hgb Conc. 35.9 g/dL (33.0-37.0); Mean Corpuscular Hgb 33.8 pg (27.0-31.0); Mean Platelet Volume 12.1 fL (7.4-10.4); Nucleated Red Blood Cells % 0 % (-); Platelet Count 76 10^3/uL (130-400); Red Blood Cell Count 2.99 10^6/uL (4.70-6.10); Red Cell Dist. Width 15.1 % (11.5-14.5)
[2023-08-29 05:02] LABS: INR 1.67; PT 19.5 Sec (11.4-14.6)
[2023-08-29 05:03] LABS: ALT (SGPT) 36 U/L (0-50); APTT 58.7 Sec (23.4-35.0); AST (SGOT) 42 U/L (17-59); Albumin 2.6 g/dl (3.5-5.0); Alkaline Phosphatase 202 U/L (38-126); Blood Urea Nitrogen 61 mg/dl (9-20); Calcium 8.7 mg/dl (8.4-10.2); Carbon Dioxide 18 mmol/L (22-30); Chloride 104 mmol/L (98-107); Estimated Creatinine Clearance 23 ml/min; Glucose 134 mg/dl (70-99); Lipase 327 U/L (23-300); Potassium 4.7 mmol/L (3.5-5.1); Sodium 133 mmol/L (135-145); Total Bilirubin 1.9 mg/dl (0.2-1.3); Total Protein 6.5 g/dl (6.3-8.2); eGFR 23.54
[2023-08-29 05:15] LABS: NT-proBNP 3440 pg/ml; Troponin I < 0.012 ng/ml
[2023-08-29 05:45] LABS: Lactic Acid 3.3 mmol/L (0.7-2.0)
--- NOTE | 2023-08-29 05:51 | HPS.HSE ---
Family Physician
-
Family Physician: Carlos Chaparro
Chief Complaint
-
SOB
History of Present Illness
The patient is a 78 yo male with PMH significant for alcohol cirrhosis, recurrent ascites, esophageal varices, type 2 DM, skin cancer, nodular regenerative hyperplasia of liver, depression, HTN, DJD, retinal vein occlusion, CHF, atrial fib, RBBB,
who presents to the ED due to difficulty catching his breath that started 3-4 hours prior to arrival to the ED, worse SOB with lying down. He had paracentesis on 08/15 with GI, Dr. Hardy (10 L removed), and prior to that had paracentesis July and April
2023 with drainage of approximately 4 L of fluid. He takes Lasix and Spironolactone and is compliant with these medications. His abdomen is distended in the ED and he also is noted to have redness of distal right lower extremity associated with
blisters on his left foot.
No CP, no f/c/n/v, no URI symptoms, no dysuria, no change in mental status. He does not take Lactulose. He has not had an alcohol drink in 30 years. He feels dehydrated, drinks one glass of water and one cup of coffee daily.
IR was consulted from the ED for paracentesis , not notified yet.
Medical History
Past Medical History
Past Medical History: Reports Other
Additional Past Medical History:
DM, ETOH cirrhosis, ascites, esophageal varices, skin cancer, nodular regenerative hyperplasia of liver, depression, HTN, DJD, retinal vein occlusion, CHF, atrial fibrillation
Past Surgical History: Reports Other
Additional Past Surgical History:
b/l TKA
Social History
Tobacco: Former Smoker
Alcohol: Former
Drug: None
Personal:
Living: With Family
Employment: Retired
Family History
Family History: Not pertinent
Allergies / Home Medications
Allergies reflects when Allergies were last updated in [facility].
Home Medications with original date entered in [facility]
Allergy/Medication List:
Allergies
Allergy/AdvReac Type Severity Reaction Status Date / Time
alprazolam [From Xanax] Allergy NAUSEA/VOMI Verified 08/29/23 05:00
TING
aspirin Allergy bad for Verified 08/29/23 05:00
liver
oxycodone Allergy hallucinati Verified 08/29/23 05:00
ons
tramadol Allergy extreme Verified 08/29/23 05:00
nausea
Home Medications
furosemide 20 mg tablet 40 mg PO DAILY 12/06/17
metformin 500 mg tablet 500 mg PO BID 12/06/17
sitagliptin phosphate 100 mg tablet (Januvia) 100 mg PO DAILY 02/22/18
spironolactone 100 mg tablet 100 mg PO DAILY 02/05/22
ferrous sulfate 325 mg (65 mg iron) tablet (FeroSul) 325 mg PO DAILY #100 tabs 02/07/22
carvedilol 3.125 mg tablet 3.125 mg PO BID 03/23/23
cholecalciferol (vitamin D3) 25 mcg (1,000 unit) capsule (Vitamin D3) 25 mcg PO DAILY 03/23/23
pantoprazole 40 mg tablet,delayed release (Protonix) 40 mg PO DAILY 03/23/23
trazodone 50 mg tablet 50 mg PO HS PRN sleep 03/23/23
Review of Systems
-
A 12 point ROS was completed and negative except as noted: Yes
Physical Exam
Vital Signs
Vital Signs
Temp Pulse Resp BP Pulse Ox
97.4 F 86 18 93/63 96
08/29/23 04:06 08/29/23 05:11 08/29/23 05:11 08/29/23 05:11 08/29/23 05:11
Physical Exam
General: Appears Chronically Ill
HEENT: NormoCephalic, Anicteric and Other (dry mucosa)
Respiratory: Clear
Cardiac: S1/S2 and Regular Rhythm
GI: Other (fluid wave, large ascites, no tenderness)
Musculoskeletal: No Clubbing, No Cyanosis and No Edema
Skin: Warm and Lesions (blister, dry on bottom of left foot, excoriations left ankle, erythema left ankle)
Neuro: AO x 3, No Motor Deficits and Nonfocal/grossly intact
Psych: Calm
Laboratory Results
-
08/29/23 04:35
08/29/23 04:35
Laboratory Results
PT 19.5 Sec (11.4-14.6) H 08/29/23 04:35
INR 1.67 08/29/23 04:35
APTT 58.7 Sec (23.4-35.0) H 08/29/23 04:35
Lactic Acid 3.3 mmol/L (0.7-2.0) H 08/29/23 05:21
Total Bilirubin 1.9 mg/dl (0.2-1.3) H 08/29/23 04:35
AST 42 U/L (17-59) 08/29/23 04:35
ALT 36 U/L (0-50) 08/29/23 04:35
Alkaline Phosphatase 202 U/L (38-126) H 08/29/23 04:35
Troponin I < 0.012 ng/ml 08/29/23 04:35
Lipase 327 U/L (23-300) H 08/29/23 04:35
Data Reviewed
-
Diagnostic Radiology: Image Personally Visualized and interpreted (CXR poor inspiratory effort)
Impression/Plan
-
IMPRESSION:
#Recurrent severe symptomatic ascites
-IR consultation placed and discussed with IR, for paracentesis, ordered peritoneal fluid labs/cultures, will likely require albumin post paracentesis
-GI consultation appreciated
-hold PO Lasix for now pending procedure and monitor BP, hold spironolactone for now
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
-likely contributing to low BP
-Lipase mildly elevated 327
-INR 1.67, Na 133, Tbili 1.9, Alb 2.6
#MAURILIO Creat 2.6 (baseline is closer to 1.0)
concern for hepatorenal syndrome, likely multifactorial due to cirrhosis, volume depletion, possible sepsis from cellulitis
-Nephro Cx appreciated
-IV fluid bolus 500 mL in ED, and IVF after that at 80 mL per hour for now
-albumin per protocol with IR/Paracentesis pending
#Esophageal Varices, history of, no active bleeding
#LLE cellulitis, concern for sepsis due to infection versus less likely SBP
-LA 3.3
-serial LA level
-blood cultures
-Continue IV Zosyn, which will also cover possible SBP
#Thrombocytopenia, chronic platelets 76 and similar to previous value
-monitor repeat labs in am
#Type 2 DM
-glucose stable, continue Januvia
-hold Metformin
#Depression
# HTN, holding BP meds for now pending paracentesis and fluids
-monitor closely
# DJD
# Retinal vein occlusion, history of
#CHF, likely volume depleted at this time, not in exacerbation
#Atrial fibrillation
-cont low dose BB with hold parameters
-monitor on tele
DVT proph-PCSs
Full Code
[2023-08-29] MEDS: ZOSYN 50 IV ×4 (06:17→23:31)
[2023-08-29] MEDS: NSS 500 IV ×2 (08:03→23:31)
--- NOTE | 2023-08-29 09:30 | PTCARENOTE ---
Received patient from ED into 2139. Patient AAOx3, assist x2 with RW, states using single point cane at home. VSS, NSR on campus monitor, L foot blister and abrasions covered with foams, wound care consulted. Dietary consulted per patient request
for appetite/hydration recommendations. Bed alarm in place, patient oriented to room and call saxena. Patient to IR for paracentesis.
[2023-08-29] MEDS: VITAMIN D3 (cholecalciferol) 25 MCG PO (09:36)
[2023-08-29] MEDS: FEOSOL 325 MG PO (09:36)
[2023-08-29] MEDS: JANUVIA 100 MG PO (09:36)
[2023-08-29] MEDS: PROTONIX 40 MG PO (09:36)
[2023-08-29] MEDS: COREG 3.125 MG PO (09:36)
[2023-08-29] MEDS: NSS 1000 IV (09:37)
[2023-08-29 11:30] LABS: Body Fluid WBC 5742 /CUMM
[2023-08-29 11:31] LABS: Body Fluid Mononuclear 13.5 %; Body Fluid Polymorphonuclear 86.5 %
--- NOTE | 2023-08-29 11:38 | W.PN.HOSP.TC ---
Today's Communication/Plan
-
Nonbillable note
Monitor vital signs see plan
IR for para today
Continue antibiotics
Monitor renal function
Assessment / Plan
Assessment / Plan
General: Appears Chronically Ill
HEENT: NormoCephalic, Anicteric and Other (dry mucosa)
Respiratory: Clear
Cardiac: S1/S2 and Regular Rhythm
GI: Other (fluid wave, large ascites, no tenderness)
Musculoskeletal: No Clubbing, No Cyanosis and No Edema
Skin: Warm and Lesions (blister, dry on bottom of left foot, excoriations left ankle, erythema left ankle)
Neuro: AO x 3, No Motor Deficits and Nonfocal/grossly intact
Psych: Calm
Recurrent severe symptomatic ascites
s/p 10L para 7/5; follow labs. give albumin
GI following
-hold PO Lasix and monitor BP, hold spironolactone for now
monitor for SBP
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
-likely contributing to low BP
-Lipase mildly elevated 327
-INR 1.67, Na 133, Tbili 1.9, Alb 2.6
#renal insufficiency Creat 2.6 (baseline is closer to 1.0)
concern for hepatorenal syndrome, likely multifactorial due to cirrhosis, volume depletion, possible sepsis from cellulitis
-Nephro Cx appreciated
dc further fluids
cw albumin; monitor
nephrology evaluation
#Esophageal Varices, history of, no active bleeding
#LLE cellulitis
Lactic acidosis, trend lactate
-blood cultures
-Continue IV Zosyn, which will also cover possible SBP
#Thrombocytopenia, chronic platelets 76 and similar to previous value
#Type 2 DM
-glucose stable, continue Januvia
-hold Metformin
#Depression
# HTN, holding BP meds for now pending paracentesis and fluids
-monitor closely
# DJD
# Retinal vein occlusion, history of
#CHF, not in exacerbation
#Atrial fibrillation,paroxysmal
-cont low dose BB with hold parameters
-monitor on tele
DVT proph-SCD's
Full Code
Anticipated Discharge: > 48 hours
Subjective/Interval History
-
Date of Service: August 29, 2023
denies pain
Objective Data
-
Labs:
Laboratory Results
08/29/23
04:35
WBC 9.0
Hgb 10.1 L
Hct 28.1 L
Plt Count 76 L
PT 19.5 H
INR 1.67
APTT 58.7 H
Sodium 133 L
Potassium 4.7
Chloride 104
Carbon Dioxide 18 L
BUN 61 H
Creatinine 2.7 H
Glucose 134 H
Calcium 8.7
Total Bilirubin 1.9 H
AST 42
ALT 36
Alkaline Phosphatase 202 H
Vital Signs:
Vital Signs
Temp Pulse Resp BP Pulse Ox
97.5 F 80 14 80/53 99
08/29/23 08:06 08/29/23 11:33 08/29/23 11:33 08/29/23 11:33 08/29/23 10:16
[2023-08-29 11:39] LABS: Body Fluid Second Tech CF
[2023-08-29 12:01] LABS: Body Fluid Albumin < 1.0 g/dl; Body Fluid Amylase 31 U/L; Body Fluid LDH 406 U/L; Body Fluid Protein < 2.0 g/dl
[2023-08-29 12:03] LABS: Glucose - Point of Care 142 mg/dl (70-99)
[2023-08-29] MEDS: NOVOLOG FLEXPEN-LOW RESISTANCE SC (12:15)
--- NOTE | 2023-08-29 13:12 | PTCARENOTE ---
Received patient s/p paracentesis, BP 86/47, NSR on pvc monitor. Bandaid C/D/I on LLQ. Patient states no concerns, states improvement in SOB after paracentesis. MD made aware of BP, midodrine and albumin ordered.
--- NOTE | 2023-08-29 13:15 | CON.GI ---
Addendum entered and electronically signed by Evgeny Lay MD 08/29/23 16:19:
I saw and examined the patient.
The ASSIGNMENT AGENT or PA's note was reviewed and I agree with the note.
Comment:
This patient has a history of alcoholic cirrhosis, recurrent ascites, esophageal varices who was admitted for abdominal distention and recurrent ascites and was admitted for a paracentesis in which 10 L were taken off. Found to have SBP and does
have renal dysfunction. He does have a history of alcohol abuse but quit over 30 years ago.
abd: ascites, soft
impression:
cirrhosis
ascites
SBP
MAURILIO
plan:
antibiotics
repeat tap in a few days
hold diuretics
trend creatinine, nephro following
continued alcohol abstinence
already f/u with us as outpatient
Original Note:
Consultation
-
Date/Time Consultation Requested: 08/29/23 0900
Date/Time Consultation Performed: 08/29/23 1315
Requesting Provider: Josette Norman DO
Performing Provider: ED Smiley, Evgeny Lay MD
Reason for Consultation: ascites, shortness of breath
Medical History
Chief Complaint / HPI
Chief Complaint: dark stools
History of Present Illness:
Pt is a 78yo with hx ETOH cirrhosis, recurrent ascites, esophageal varices, nodular regenerative hyperplasia of liver, afib, DM, skin CA, HTN, retinal occlusion,, RBBB presents to ER with shortness of breath with lying down. Had 10 liter
paracentesis on 08/15 and now repeat today for another 10 liter tap. In reviewing with patient he has longstanding hx cirrhosis from ETOH for years. He quit ETOH 30 years ago and distant hx hepatology eval with no need for transplant. He did have
period of possible liver mass but further review of imaging not cancer related. Per records he began with need for paracentesis in March just prior to hernia repair. Prior to that he was managed with diuretic therapy. He was also noted with
some recent fall and mental status issue with ER visit in July that are now improved. He is also noted + SBP on admission.
He currently admits to shortness of breath on admission with abdominal distention now improved since para this am. He denies dysphagia, odynophagia, nausea, vomiting, abdominal pain, diarrhea, constipation or rectal bleeding. He has hx
attempted colonoscopy with difficulty with prep in past and EGD 2021 with grade II EV no recent bleeding, grade A esophagitis, mild gastritis normal duodenum.
Past Medical History
Past Medical History: Arrhythmias (afib, RBBB), Cancer (skin CA), Hypothyroidism, Psychiatric (depression) and Other (DM, ETOH cirrhosis, ascites, esophageal varices/prior GI bleed, portal HTN, skin cancer, nodular regenerative hyperplasia of liver,
thrombocytopenia, depression, HTN, DJD, retinal vein occlusion, hypothyroidism, CHF, gallstones, liver mass )
Past Surgical History: Orthopedic (b/l TKA) and Other (Moh's surgery, hernia repair with mesh )
Social History
Tobacco: Former Smoker (quit 40 + years )
Alcohol: Former (Stopped 30 years ago )
Drug: None
Personal:
Living: With Family (lives with (who has dementia))
Employment: Retired (former health care administrative tech.)
Family History
Family History: Other (GP- lung cancer. No GI cancers)
Allergies / Home Medications
Allergy/AdvReac Type Severity Reaction Status Date / Time
alprazolam [From Xanax] Allergy NAUSEA/VOMI Verified 08/29/23 05:00
TING
aspirin Allergy bad for Verified 08/29/23 05:00
liver
oxycodone Allergy hallucinati Verified 08/29/23 05:00
ons
tramadol Allergy extreme Verified 08/29/23 05:00
nausea
�Medication �Instructions �Recorded
furosemide 20 mg tablet 40 mg PO DAILY 12/06/17
metformin 500 mg tablet 500 mg PO BID 12/06/17
sitagliptin phosphate 100 mg 100 mg PO DAILY 02/22/18
tablet (Januvia)
spironolactone 100 mg tablet 100 mg PO DAILY 02/05/22
ferrous sulfate 325 mg (65 mg 325 mg PO DAILY #100 tabs 02/07/22
iron) tablet (FeroSul)
carvedilol 3.125 mg tablet 3.125 mg PO BID 03/23/23
cholecalciferol (vitamin D3) 25 25 mcg PO DAILY 03/23/23
mcg (1,000 unit) capsule (Vitamin
D3)
pantoprazole 40 mg tablet,delayed 40 mg PO DAILY 03/23/23
release (Protonix)
trazodone 50 mg tablet 50 mg PO HS PRN sleep 03/23/23
Review of Systems
-
History Source: Patient
Constitutional: Reports Other (wt up and down with para)
EENT: Reports No Symptoms
Respiratory: Reports Trouble Breathing (on admission now improved )
Cardiac: Reports No Symptoms
Abdomen/GI: Reports Abdominal Pain (with distention on admission )
: Reports No Symptoms
Musculoskeletal: Reports No Symptoms
Skin: Reports No Symptoms
Neurological: Reports Weakness
Endocrine: Reports No Symptoms
Hematologic/Lymphatic: Reports No Symptoms
Vital Signs
Temp Pulse Resp BP Pulse Ox
97.5 F 80 18 86/47 97
08/29/23 08:06 08/29/23 12:03 08/29/23 12:03 08/29/23 12:03 08/29/23 12:27
Physical Exam
Exam
General: Other (thin appearing )
HEENT: Normocephalic and Anicteric
Respiratory: Other (decreased bases )
Cardiac: Regular Rhythm
GI: Soft, Tender (minimal ) and Distended
Musculoskeletal: No Clubbing and No Cyanosis
Skin: Warm and Dry
Neuro: Awake, Alert, AO x 3 and Other (no asterixis )
Psych: Calm
Results
WBC 9.0 10^3/uL (4.8-10.8) 08/29/23 04:35
Hgb 10.1 g/dL (13.0-18.0) L 08/29/23 04:35
Hct 28.1 % (39.0-52.0) L 08/29/23 04:35
MCV 94.0 fL (80.0-94.0) 08/29/23 04:35
Plt Count 76 10^3/uL (130-400) L 08/29/23 04:35
Absolute Neuts (auto) 7.9 10^3/uL (1.4-6.5) H 08/29/23 04:35
PT 19.5 Sec (11.4-14.6) H 08/29/23 04:35
INR 1.67 08/29/23 04:35
APTT 58.7 Sec (23.4-35.0) H 08/29/23 04:35
Sodium 133 mmol/L (135-145) L 08/29/23 04:35
Potassium 4.7 mmol/L (3.5-5.1) 08/29/23 04:35
Chloride 104 mmol/L (98-107) 08/29/23 04:35
Carbon Dioxide 18 mmol/L (22-30) L 08/29/23 04:35
BUN 61 mg/dl (9-20) H 08/29/23 04:35
Creatinine 2.7 mg/dL (0.7-1.3) H 08/29/23 04:35
Calcium 8.7 mg/dl (8.4-10.2) 08/29/23 04:35
Total Bilirubin 1.9 mg/dl (0.2-1.3) H 08/29/23 04:35
AST 42 U/L (17-59) 08/29/23 04:35
ALT 36 U/L (0-50) 08/29/23 04:35
Alkaline Phosphatase 202 U/L (38-126) H 08/29/23 04:35
Lipase 327 U/L (23-300) H 08/29/23 04:35
Diagnostic Image Results:
paracentesis 07/18- 9150ml, 08/15- 10 liters, 08/28 - 10 liters
06/2023 MR Abdomen W/o & W Contrast
1. Large volume abdominopelvic ascites.
2. Severe hepatic cirrhosis without MRI evidence for a liver lesion that is suspicious for hepatocellular carcinoma.
3. Splenomegaly.
4. Cholelithiasis.
08/11/23 HCT No acute intracranial abnormality noted.
Prior GI Procedures:
EGD: 2021 shanae with grade II EV no recent bleeding, grade A esophagitis, mild gastritis normal duodenum.
Colonoscopy: hx attempted colonoscopy with difficulty with prep in past
Assessment / Plan
-
Pt is a 78yo with hx ETOH cirrhosis, recurrent ascites, esophageal varices, nodular regenerative hyperplasia of liver, afib, DM, skin CA, HTN, retinal occlusion, RBBB presents to ER with shortness of breath with lying down. Had 10 liter
paracentesis on 08/15 and now repeat today for another 10 liter tap. In reviewing with patient he has longstanding hx cirrhosis from ETOH for years. He quit ETOH 30 years ago and distant hx hepatology eval with no need for transplant. He did have
period of possible liver mass but further review of imaging not cancer related. Per records he began with need for paracentesis in March just prior to hernia repair. Prior to that he was managed with diuretic therapy. He was also noted with
some recent fall and mental status issue with ER visit in July that are now improved. He is also noted with + SBP on admission.
-intractable ascites
-SBP
-hx ETOH cirrhosis quit ETOH 30 years ago
-MAURILIO
-elevated lactate level
-EV/portal HTN
-nodular regnerative hyperplasia
-recent fall with change in mental status changes with ER eval in July
other medical problems:
-afib not on anticoagulation
-DM
-skin CA
-HTN
-retinal occlusion
-thrombocytopenia
-retinal vein occlusion
-hypothyroidism
-cholelithiasis
PLAN:
Pt with worsening renal dysfunction and worsening ascites despite diuretics
repeat tap on admission for 10 liters now with + SBP
will given 100 gram albumin 1.5 gram today then will need 75gram again day 3 (08/30)-- reviewed with nursing and pharmacy for orders
pt also getting albumin RTC for MAURILIO
cont abx
consider repeat tap 2-3 day to reassess for improvement
trend creat for renal eval
diuretics on hold
HCC screening with MRI in June, with AFP 1.35 in July
MELD 3.0 27 on admission driven by MAURILIO
Pt due 09/21 with Sydni méndez for follow up
reviewed with Dr. Edmond
-
-
-
Thank you for consultation and allowing me to participate in the patient's care. Please call the wagon washer GI physician during the after hours with any questions or concerns.
[2023-08-29] MEDS: ProAmatine 5 MG PO ×2 (13:55→18:25)
[2023-08-29] MEDS: FLEXBUMIN 100 IV ×4 (13:56→18:54)
--- NOTE | 2023-08-29 14:19 | W.CON.NEPH ---
Consultation
-
Date/Time Consultation Requested: 08/29/2023 8:58AM
Date/Time Consultation Performed: 08/29/2023 4:05PM
Requesting Provider: Josette Norman
Performing Provider: April Jo
Reason for Consultation: MAURILIO
Medical History
-
Chief Complaint: MAURILIO
History of Present Illness:
Mr. Wiley is a 78YOM with PMH of alcohol cirrhosis, recurrent ascites, esophageal varices, type 2 DM, skin cancer, nodular regenerative hyperplasia of liver, depression, HTN, DJD, retinal vein occlusion, CHF, atrial fib, RBBB, who presented to
the ED due to difficulty catching his breath that started 3-4 hours prior to arrival to the ED, worse SOB with lying down. He gets recurrent paracentesis, last in August 15 with GI and had 10L removed. He also had nando in with 4L removed.
He takes lasix/keyshawn and is compliant with these meds. He had a very distended abdomen and went for a para with IR today. His shortness of breath is completely resolved and he feels much better. Denies CP, fevers, chills, no URI sxs. He does not
take lactulose. Has not noticed any significant changes in urination. Endorses some lightheadedness/dizziness at home.
Past Medical History
DM, ETOH cirrhosis, ascites, esophageal varices, skin cancer, nodular regenerative hyperplasia of liver, depression, HTN, DJD, retinal vein occlusion, CHF, atrial fibrillation
Past Surgical History: Other (b/l TKA)
Social History
Tobacco: Former Smoker
Alcohol: Former
Drug: None
Personal:
Living: With Family
Employment: Retired
Family History
Family History: Not Pertinent
Allergies / Home Medications
Allergy/AdvReac Type Severity Reaction Status Date / Time
alprazolam [From Xanax] Allergy NAUSEA/VOMI Verified 08/29/23 05:00
TING
aspirin Allergy bad for Verified 08/29/23 05:00
liver
oxycodone Allergy hallucinati Verified 08/29/23 05:00
ons
tramadol Allergy extreme Verified 08/29/23 05:00
nausea
�Medication �Instructions �Recorded �Confirmed �Type
furosemide 20 mg tablet 40 mg PO DAILY 12/06/17 08/29/23 History
metformin 500 mg tablet 500 mg PO BID 12/06/17 08/29/23 History
sitagliptin phosphate 100 mg 100 mg PO DAILY 02/22/18 08/29/23 History
tablet (Januvia)
spironolactone 100 mg tablet 100 mg PO DAILY 02/05/22 08/29/23 History
ferrous sulfate 325 mg (65 mg 325 mg PO DAILY #100 tabs 02/07/22 08/29/23 Rx
iron) tablet (FeroSul)
carvedilol 3.125 mg tablet 3.125 mg PO BID 03/23/23 08/29/23 History
cholecalciferol (vitamin D3) 25 25 mcg PO DAILY 03/23/23 08/29/23 History
mcg (1,000 unit) capsule (Vitamin
D3)
pantoprazole 40 mg tablet,delayed 40 mg PO DAILY 03/23/23 08/29/23 History
release (Protonix)
trazodone 50 mg tablet 50 mg PO HS PRN sleep 03/23/23 08/29/23 History
Review of Systems
-
History Source: Patient
All other systems: Negative unless noted
Constitutional: Weight Gain and Fatigue
Respiratory: Trouble Breathing
Physical Exam
Vital Signs
Vital Signs
Temp Pulse Resp BP Pulse Ox
97.5 F 80 18 86/47 97
08/29/23 08:06 08/29/23 13:55 08/29/23 12:03 08/29/23 13:55 08/29/23 12:27
Lab Results
WBC 9.0 10^3/uL (4.8-10.8) 08/29/23 04:35
RBC 2.99 10^6/uL (4.70-6.10) L 08/29/23 04:35
Hgb 10.1 g/dL (13.0-18.0) L 08/29/23 04:35
Hct 28.1 % (39.0-52.0) L 08/29/23 04:35
Plt Count 76 10^3/uL (130-400) L 08/29/23 04:35
Sodium 133 mmol/L (135-145) L 08/29/23 04:35
Potassium 4.7 mmol/L (3.5-5.1) 08/29/23 04:35
Chloride 104 mmol/L (98-107) 08/29/23 04:35
Carbon Dioxide 18 mmol/L (22-30) L 08/29/23 04:35
BUN 61 mg/dl (9-20) H 08/29/23 04:35
Creatinine 2.7 mg/dL (0.7-1.3) H 08/29/23 04:35
eGFR 23.54 08/29/23 04:35
Glucose 134 mg/dl (70-99) H 08/29/23 04:35
Calcium 8.7 mg/dl (8.4-10.2) 08/29/23 04:35
Liq-M-Ksnivqmfrrm Pept 3440 pg/ml 08/29/23 04:35
Albumin 2.6 g/dl (3.5-5.0) L 08/29/23 04:35
Physical Exam
General: AOx3, No Distress and Nontoxic
HEENT: PERRL, EOMI, Anicteric, Conjunctivae Clear, Ear/Nose Intact, Oropharynx Clear/Moist, Dentition Intact, Neck Supple, Trachea Midline, No JVD, No Thyromegaly and Other (hard of hearing )
Respiratory: Clear, Normal Excursion and Nonlabored Respirations
Cardiac: S1/S2, Regular Rate/Rhythm and No Edema
Breast: N/A
Abdomen: Soft, Nontender, Nondistended, Normal Bowel Sounds, No Hepatosplenomegaly and Other (s/p paracentesis)
Rectal: Deferred by Provider
Genito-urinary: No Costovertebral Tender and Clear Urine
Musculoskeletal: No Clubbing, No Cyanosis and No Edema
Skin: No Rash, Warm, Dry, No Clubbing and No Cyanosis
Neuro: Nonfocal/Grossly Intact
Hematologic/Lymphatic: No Cervical Lymphadenopathy
Psych: Mood/afflect pleasant, Insight/judgement good and Appropriate
Data Reviewed
-
Radiology: Image Personally Visualized and interpreted (poor inspiratory effort, difficult to interpret. )
Labs: Labs Reviewed by me, Discussed with Physician and Discussed with Patient
Old Records: Reviewed
Assessment/Plan
-
Assessment:
MAURILIO
NAGMA
mild hyponatremia
Plan:
MAURILIO
- likely in the setting of hepatorenal disease vs other pre-renal
- obtain UA, urine sodium, urine osm
- s/p paracentesis, given albumin afterwards which might help his MAURILIO
- mentating well
- trend BMP
- if no change in Cr by tomorrow, will consider HRS treatment with midodrine, octreotide, albumin.
--- NOTE | 2023-08-29 14:30 | PTCARENOTE ---
Patient receiving IV albumin per GI in L FA IV @ 60 ml/hr. This RN communicated with Josette Almonte of GI over telephone - IV albumin total dose increased from 62.5 g to 100 g per GI. Patient receiving first bag of 25 g albumin at this time, order
placed per GI for 3 more bags of 25 g albumin scheduled after current bag infusing to total 100 g given. Patient tolerating infusion, states no concerns at this time.
--- NOTE | 2023-08-29 14:54 | WOUNDNOTE ---
L MEDIAL FOOT WITHOUT FLASH
--- NOTE | 2023-08-29 14:56 | WOUNDNOTE ---
WON RN note: Patient admitted with cellulitis and symptomatic ascites.
See H&P for complete history. Lives with family has 12 hr caregivers daily states patient.
PMH: NIDDM, A Fib, alcohol related liver cirrhosis-multiple paracentesis, ex-smoker, arthritis, blind R eye, TANACROSS.
Wound Location and type/assessment: Patient admitted with: Multiple abrasions on legs, knees from fall out of car patient states, onto driveway. L rene with tiny open wound, yellow base, suspect abrasion. L medial foot with dry blister and dry flap
of skin removed with cleaning. Patient states his daughter who lives with him and his insisted on applying compression wrap causing blister. Appears patient walks around house barefoot, dog hair stuck to wound and dirty feet on plantar aspect.
Multiple abrasions to L dorsal and lateral ankle. + palpable pedal pulses and red larissa skin. Heels with foam adhesives that nurse Kathleen reports are intact. Patient turned self slowly, sacrum is blanchable red. Patient appears very thin and bony,
silicone foam in use on spine, few abrasions and blanchable red areas.
Appetite: Good reports nurse.
Pressure redistribution devices in place: On [facility] care air bed, pillow under calves. Gave patient air cushion.
Plan: Honey gel to all open ulcers daily, dry dressing or foam to remainder of wounds. Moisturize skin with mineral oil daily. Will confirm orders with hospitalist and called spd for supply. updated nurse and care plan will follow as needed.
Note to case management of equipment requested for discharge: VN
Recommend follow up at wound care center if needed upon discharge.
[2023-08-29 15:20] LABS: Lactic Acid 3.1 mmol/L (0.7-2.0)
--- NOTE | 2023-08-29 15:37 | CM ---
Reviewed the chart notes and spoke with the patient at the bedside. The patient resides with his spouse who has dementia and they both have caregivers daily. Patient could not recall name of agency the caregivers are through. The house is a two
story with a total of six steps to enter. The patient has a walking stick and stair glide. The patient reports no VN or SNF in the past for himself. The patient confirmed his pharmacy of choice is [facility] [place]. CM continues to
be available to patient/family and is monitoring medical plan for needs at discharge.
Plan: Discharge plans will depend on the patient's progress.
[2023-08-29 15:50] LABS: Osmolality Urine 334 mOsm/kg (300-900)
[2023-08-29 15:52] LABS: Urine Albumin Negative (Neg - Trace); Urine Bilirubin 1+ (Negative); Urine Character Clear (Clear); Urine Color Amber; Urine Glucose Negative (Negative); Urine Ketone Negative (Negative); Urine Leukocyte Trace (Negative); Urine Nitrite Negative (Negative); Urine Occult Blood Negative (Negative); Urine Urobilinogen 1+ (Neg - 1+)
[2023-08-29 16:01] LABS: Urine Bacteria Few (Negative); Urine Red Blood Cell 0-2 /HPF (0-2); Urine Urothelial Cell 0-2 /LPF (FEW)
[2023-08-29 16:09] LABS: Urine Sodium 51 mmol/L (30-90)
[2023-08-29 16:55] LABS: Glucose - Point of Care 209 mg/dl (70-99)
--- NOTE | 2023-08-29 17:00 | PTCARENOTE ---
Patient's blood pressure taken by [employer] 82/42, HR NSR on academic affairs dean. Patient states no concerns at this time. made aware, manual BP taken in both arms by this RN at request of MD, 80/40 RUE and 82/38 LUE. Verbal order taken for one time
dose of 5 mg PO midodrine, administered by this RN - see MAR. NSS infusing at 80 ml/hr in R FA IV, albumin infusing in L FA IV per GI.
[2023-08-29] MEDS: NOVOLOG FLEXPEN-LOW RESISTANCE 2 UNITS SC (18:25)
[2023-08-29 20:00] LABS: Lactic Acid 3.3 mmol/L (0.7-2.0)
[2023-08-29] MEDS: COREG PO (20:46)
[2023-08-29 21:38] LABS: Glucose - Point of Care 271 mg/dl (70-99)
[2023-08-29] MEDS: DESYREL 50 MG PO (23:44)
[2023-08-30] VITALS (11 sets, daily range): BP systolic 89–122; BP diastolic 47–57; PULSE 67–69; O2SAT 99–100; BMI 20.5
[2023-08-30 01:56] LABS: Lactic Acid 2.2 mmol/L (0.7-2.0)
[2023-08-30] MEDS: FLEXBUMIN 100 IV ×3 (04:32→20:42)
[2023-08-30 05:55] LABS: Ammonia 20 umol/L (9-30)
[2023-08-30 06:02] LABS: % Basophils 0.3 % (0-2); % Eosinophils 0.8 % (0-6); % Immature Granulocytes 0.8 % (0-0.5); % Lymphocytes 5.6 % (20.5-51.1); % Monocytes 7.3 % (1.7-9.3); % Neutrophils 85.2 % (42.2-75.2); Absolute Eosinophils 0.1 10^3/uL (0-0.7); Absolute Immature Granulocytes 0.1 10^3/uL (0-0.05); Absolute Lymphocytes 0.4 10^3/uL (1.2-3.4); Absolute Monocytes 0.5 10^3/uL (0.1-0.6); Absolute Neutrophils 5.5 10^3/uL (1.4-6.5); Hematocrit 22.5 % (39.0-52.0); Hemoglobin 8.2 g/dL (13.0-18.0); Mean Corp Hgb Conc. 36.4 g/dL (33.0-37.0); Mean Corpuscular Hgb 32.8 pg (27.0-31.0); Mean Platelet Volume 11.6 fL (7.4-10.4); Nucleated Red Blood Cells % 0 % (-); Platelet Count 47 10^3/uL (130-400); Red Cell Dist. Width 15.3 % (11.5-14.5); White Blood Cell Count 6.5 10^3/uL (4.8-10.8)
[2023-08-30] MEDS: ZOSYN 50 IV ×4 (06:07→23:28)
[2023-08-30 06:44] LABS: ALT (SGPT) 23 U/L (0-50); AST (SGOT) 25 U/L (17-59); Alkaline Phosphatase 114 U/L (38-126); Blood Urea Nitrogen 67 mg/dl (9-20); Calcium 8.5 mg/dl (8.4-10.2); Carbon Dioxide 16 mmol/L (22-30); Chloride 103 mmol/L (98-107); Estimated Creatinine Clearance 20 ml/min; Glucose 223 mg/dl (70-99); Magnesium 1.7 mg/dl (1.6-2.3); Sodium 131 mmol/L (135-145); Total Bilirubin 1.7 mg/dl (0.2-1.3); Total Protein 5.9 g/dl (6.3-8.2); eGFR 22.53
[2023-08-30 06:46] LABS: INR 1.89; PT 21.5 Sec (11.4-14.6)
[2023-08-30 07:30] LABS: Glucose - Point of Care 244 mg/dl (70-99)
[2023-08-30] MEDS: COREG PO (08:41)
[2023-08-30] MEDS: NOVOLOG FLEXPEN-LOW RESISTANCE 2 UNITS SC (08:45)
[2023-08-30] MEDS: HYDROPHOR 1 APPLIC TOPICAL (08:45)
[2023-08-30] MEDS: PROTONIX 40 MG PO (08:46)
[2023-08-30] MEDS: FEOSOL 325 MG PO (08:46)
[2023-08-30] MEDS: JANUVIA 100 MG PO (08:46)
[2023-08-30] MEDS: VITAMIN D3 (cholecalciferol) 25 MCG PO (08:46)
[2023-08-30 09:07] LABS: Glycohemoglobin (HgbA1c) 6.5 % (4.0-5.6)
[2023-08-30] MEDS: ProAmatine 5 MG PO ×2 (09:13→20:42)
[2023-08-30] MEDS: SANDOSTATIN 50 MCG IV ×3 (09:14→22:44)
--- NOTE | 2023-08-30 09:51 | W.PN.GI.CBS2 ---
Addendum entered and electronically signed by Kathryn Simms Do, MD 08/30/23 18:17:
I saw and examined the patient.
The CLOTH BLEACHING RANGE OPERATOR CHIEF's note was reviewed and I agree with the note.
Comment: Galdino is a 78yo M with ETOH cirrhosis decompensated by recurrent ascites with now SBP with possible hepatorenal syndrome.
Impression
- Recurrent large volume ascites with SBP
- Worsening Cr concerning for HRS
- ETOH cirrhosis
- H/o varices
- DM
- HTN
Recommendations
- C/w abx
- + ascitic fluid culture + GNR. Appreciate ID recs
- Plan for small volume repeat paracentesis on day 3 to ascertain response
- Cannot get diuretics or non selective Bblocker due to hypotension
- C/w midorine, ocreotide and albumin per renal
- C/w diet
- Add lactulose
- Not transplante candidate given age. MELD is 30 which portends poor prognosis
Will follow gladis rowley
Original Note:
Today's Communication / Plan
-
MELD 30. Continue zosyn for SBP, ascites culture pending. Consider repeat paracentesis 2-3 days
Assessment / Plan
-
Pt is a 78yo with hx ETOH cirrhosis, recurrent ascites, esophageal varices, nodular regenerative hyperplasia of liver, afib, DM, skin CA, HTN, retinal occlusion, RBBB presented to ER 08/29/23 with shortness of breath with lying down. Had 10 liter
paracentesis on 08/15, and repeat paracentesis on 08/29/23 was for another 10 liter tap. In reviewing with patient he has longstanding hx cirrhosis from ETOH for years. He quit ETOH 30 years ago and distant hx hepatology eval with no need for
transplant. He did have period of possible liver mass but further review of imaging not cancer related. Per records he began with need for paracentesis in March just prior to hernia repair. Prior to that he was managed with diuretic
therapy. He was also noted with some recent fall and mental status issue with ER visit in July that are now improved. He is also noted with + SBP on admission.
Problem list:
- Intractable ascites, SBP
- s/p 10 L paracentesis 08/29/23, +SBP (ascites PMN [id number]).
- Ascites prelim culture: gram neg bacilli. Final culture pending
- s/p administration of 100g albumin 08/28
-hx ETOH cirrhosis quit ETOH 30 years ago
- MELD 3.0 score of 27 on admission, driven by MAURILIO --> today 30.
-MAURILIO
- Nephrology following given concern for hepatorenal syndrome.
-elevated lactate level
-EV/portal HTN
-nodular regnerative hyperplasia
-recent fall with change in mental status changes with ER eval in July
other medical problems:
-afib not on anticoagulation
-DM
-skin CA
-HTN
-retinal occlusion
-thrombocytopenia
-retinal vein occlusion
-hypothyroidism
-cholelithiasis
Plan:
Intractable ascites, SBP
- Will follow up on final culture results from ascites
- Planned for additional 75g albumin on day 3 (08/30) following recent paracentesis. However will defer to nephrology.
- Continue zosyn q6h.
- Consider repeating paracentesis after 2-3 days of antibiotic treatment. Would repeat ascites cell count with differential at that time to see if PMN count is improving with treatment. If not responding to zosyn, will consider evaluation for source
of secondary bacterial peritonitis.
- Will check ammonia level in AM and begin lactulose PO 20g TID for concern of hepatic encephalopathy.
- Continue alcohol abstinence.
History of varices:
- At this time, not a candidate for prophylaxis with nonselective beta hilda given poor renal function. Can reevaluate outpatient if appropriate.
Subjective
Subjective
Date of Service: August 30, 2023
No complaints this morning. Denies abdominal pain, nausea, vomiting. Had 2 bowel movements in past day, no black/bloody stool.
Objective
Data Reviewed
Laboratory Data:
Laboratory Results
08/30/23 05:19
08/30/23 05:19
Laboratory Results
PT 21.5 Sec (11.4-14.6) H 08/30/23 05:19
INR 1.89 08/30/23 05:19
APTT 58.7 Sec (23.4-35.0) H 08/29/23 04:35
Magnesium 1.7 mg/dl (1.6-2.3) 08/30/23 05:19
Total Bilirubin 1.7 mg/dl (0.2-1.3) H 08/30/23 05:19
AST 25 U/L (17-59) 08/30/23 05:19
ALT 23 U/L (0-50) 08/30/23 05:19
Alkaline Phosphatase 114 U/L (38-126) 08/30/23 05:19
Lipase 327 U/L (23-300) H 08/29/23 04:35
Vital Signs and I&O:
Vital Signs
Temp Pulse Resp BP Pulse Ox
97.7 F 83 16 94/50 97
08/30/23 07:40 08/30/23 07:40 08/30/23 07:40 08/30/23 09:13 08/30/23 07:40
I&O
08/29/23 08/30/23 08/31/23
06:59 06:59 06:59
Intake Total 1940 / 1940
Output Total 750 / 750
Balance 1190 / 1190
Physical Exam
Physical Exam
General: Resting comfortably in bed, no acute distress. Awake, alert; oriented to person, place, time, reason for admission. Cachectic appearance.
Heart: Regular rate and rhythm.
Lungs: Nonlabored breathing. Anterior lung gamble clear and equal to auscultation bilaterally.
GI: Normal bowel sounds present. Abdomen distended, soft, nontender. No rebound, rigidity, guarding.
--- NOTE | 2023-08-30 10:44 | PN.CDI ---
CDI
- -
CDI:
Physician Documentation Request
Admit Date: 08/29/23 07:34
Dear Doctor Mayito,
Please review the following and provide your response in the progress notes.
Clinical Indicators:
Pt admitted with cirrhosis, cellulitis, sepsis, and acute kidney injury
08/28 Registered Dietitian note: 'wt: CBW 156lbs 8.451 oz (BMI 23.1-underweight> 65) 08/28. As per current clinical data pt denied history of wt loss and decreased intake. Pt confirms no history of wt loss- states ubw 152lbs.
Pt observed with temporal depression, clavicle protrusion, rib visible, Pt meets ASPEN/AND criteria for severe protein calorie malnutrition of chronic illness'
Based on the above information and your assessment, which of the following most accurately represents the patient's nutritional status?
Severe protein calorie Malnutrition
Underweight without malnutrition
No nutritional deficiency
Other (please specify)
[place] Criteria (ACP Hospitalist 2017)
2 or more criteria must be present for either
non severe or severe malnutrition
Note that the criteria differs related to the
presence of an acute or chronic illness
Chronic Illness
Energy Intake Non Severe: <75% for >1 month
Severe: <75% for >1 month
Weight Loss Non Severe: 5% over 1 month
7.5% over 3 months
10% over 6 months
20% over 1 year
Severe: >5% over 1 month
>7.5% over 3 months
>10% over 6 months
>20% over 1 year
Body Fat Non Severe: Mild Loss
Severe: Severe Loss
Muscle Mass Non Severe: Mild Loss
Severe: Severe Loss
Fluid Accumulation Non Severe: Mild Accumulation
Severe: Moderate to severe
Additional criteria that can be used to Determine if Mild or Moderate Malnutrition (Merck Manual 2018)
Use of terms such as suspected, likely, concern for, or probable (associated with a specific diagnosis that is being evaluated, monitored, or treated as if it exists) are acceptable and can be coded in the inpatient setting, when documented at the
time of discharge.
Thank you,
Izzy Brunner RN, BSN
CDI Specialist
Available via [place] [employer]
Please use your independent medical judgment in providing your response.
[2023-08-30 11:01] LABS: Glucose - Point of Care 283 mg/dl (70-99)
--- NOTE | 2023-08-30 11:01 | PN.CDI ---
CDI
- -
CDI:
Physician Documentation Request
Admit Date: 08/29/23 07:34
Dear Doctor Mayito,
Please review the following and provide your response in the progress notes.
Clinical Indicators:
Pt admitted with cirrhosis with ascites, cellulitis, sepsis, and acute kidney injury.
The diagnosis of Bifascicular Block was included in the signed Electrocardiogram on 08/29/23
Please indicate in your progress notes if you are in agreement that the above diagnosis is valid for this patient:
Bifascicular Block is a valid diagnosis (Please include it in your progress notes)
Bifascicular Block is not a valid diagnosis for this patient
Other
Use of terms such as suspected, likely, concern for, or probable are acceptable for a diagnosis that is being evaluated, monitored or treated as if it exists and can be coded in the inpatient setting, when documented at the time of discharge.
Thank you,
Izzy Brnuner RN, BSN
CDI Specialist
Available via [place] [employer]
Please use your independent medical judgment in providing your response.
--- NOTE | 2023-08-30 11:11 | PN.CDI ---
CDI
- -
CDI:
Physician Documentation Request
Admit Date: 08/29/23 07:34
Dear Doctor Mayito,
Please review the following and provide your response in the progress notes.
Clinical Indicators:
Pt admitted with cirrhosis with ascites, cellulitis, sepsis, and acute kidney injury.
08/28 Progress Notes: 'CHF, not in exacerbation'
Pt's home medication includes Furosemide 40mg daily
Pt's previous chart 02/07/2022, progress note: 'Chronic HFpEF'
Pt's previous Echocardiogram 02/01/2018: 'Normal left ventricular chamber size and normal left ventricular systolic
function; left ventricular ejection fraction is 65-70 %. Normal regional wall
motion. Normal left ventricular wall thickness. The diastolic filling pattern
suggests possible mild abnormal relaxation. Hyperdynamic at the mid cavity
level. Visual midcavity obliteration with systole.
Normal right ventricular size and function.
Please provide further specificity regarding the most likely Type of CHF you are evaluating, treating or monitoring.
Systolic Heart Failure
Diastolic Heart Failure
Combined Systolic?Diastolic Heart Failure
Other
Unable to determine
Use of terms such as suspected, likely, concern for, or probable (associated with a specific diagnosis that is being evaluated, monitored, or treated as if it exists) are acceptable and can be coded in the inpatient setting, when documented at the
time of discharge.
Thank you,
Izzy Brunner RN, BSN
CDI Specialist
Available via [place] [employer]
Please use your independent medical judgment in providing your response.
--- NOTE | 2023-08-30 11:24 | W.PN.HOSP.TC ---
Today's Communication/Plan
-
Monitor vital signs and see plan
Continue antibiotics
Follow paracentesis culture
ID evaluation
Albumin
Monitor renal function
Assessment / Plan
Assessment / Plan
General: Appears Chronically Ill
HEENT: NormoCephalic, Anicteric
Respiratory: Clear
Cardiac: S1/S2 and Regular Rhythm
GI: Other (fluid wave, large ascites, no tenderness)
Musculoskeletal: No Edema
Skin: Warm and Lesions (blister, dry on bottom of left foot, excoriations left ankle, erythema left ankle)
Neuro: AO x 3, No Motor Deficits and Nonfocal/grossly intact
Psych: Calm
Recurrent severe symptomatic ascites
s/p 10L para 7/5; per labs concerning for SBP, fluid cx with gram neg rods. already on zosyn follow labs. on albumin
GI following
-hold PO Lasix and monitor BP, hold spironolactone for now
monitor for SBP
consult ID
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
-likely contributing to low BP
-Lipase mildly elevated 327
-INR 1.67, Na 133, Tbili 1.9, Alb 2.6
#renal insufficiency (baseline is closer to 1.0)
Cr now 2.8
concern for hepatorenal syndrome, likely multifactorial due to cirrhosis, volume depletion, possible sepsis from cellulitis
-Nephro Cx appreciated
cw albumin; monitor
nephrology following
Hyponatremia
Monitor
Anemia, likely anemia of chronic disease
Monitor
Chest x-ray with hazy opacity on lateral view, could be suggestive of left lower lobe pneumonia or atelectasis
Currently denies any cough, does not appear to have pneumonia.
#Esophageal Varices, history of, no active bleeding
#LLE cellulitis
Lactic acidosis, trend lactate
-blood cultures
-Continue IV Zosyn, which will also cover possible SBP
#Thrombocytopenia, chronic
Monitor platelets, likely secondary to cirrhosis
possible bifascicular block
Severe protein calorie Malnutrition
#Type 2 DM
-glucose stable, continue Januvia
-hold Metformin
#Depression
# HTN, holding BP meds for now pending paracentesis and fluids
-monitor closely
# DJD
compression fx on lumbar spine; monitor
# Retinal vein occlusion, history of
#CHF, not in exacerbation
#Atrial fibrillation,paroxysmal
-cont low dose BB with hold parameters
-monitor on tele
DVT proph-SCD's
Full Code
I spent a total of 52 minutes with the patient or on the floor. More than 50% of this time involved counseling and coordination of care.
Anticipated Discharge: > 48 hours
Subjective/Interval History
-
Date of Service: August 30, 2023
denies nausea
Objective Data
-
Labs:
Laboratory Results
08/30/23
05:19
WBC 6.5
Hgb 8.2 L
Hct 22.5 L
Plt Count 47 L D
PT 21.5 H
INR 1.89
Sodium 131 L
Potassium 4.0
Chloride 103
Carbon Dioxide 16 L
BUN 67 H
Creatinine 2.8 H
Glucose 223 H
Calcium 8.5
Total Bilirubin 1.7 H
AST 25
ALT 23
Alkaline Phosphatase 114
Vital Signs:
Vital Signs
Temp Pulse Resp BP Pulse Ox
97.7 F 83 16 94/50 97
08/30/23 07:40 08/30/23 07:40 08/30/23 07:40 08/30/23 09:13 08/30/23 07:40
I&O
08/29/23 08/30/23 08/31/23
06:59 06:59 06:59
Intake Total 1939 / 1939
Output Total 750 / 750
Balance 1190 / 1190
[2023-08-30] MEDS: NOVOLOG FLEXPEN-LOW RESISTANCE 3 UNITS SC ×2 (12:08→18:20)
--- NOTE | 2023-08-30 12:41 | W.PN.NEPH.PH ---
Today's Communication / Plan
-
- alb, midodrine, octreotide
Assessment/Plan
-
Assessment:
MAURILIO
NAGMA
mild hyponatremia
Plan:
MAURILIO
- likely in the setting of hepatorenal disease vs SBP vs. other pre-renal
- UA notable for no blood or protein, some bacteria
- on empiric abx for SBP
- urine osm 334 and urine sodium 51 --> not entirely consistent with HRS
- s/p paracentesis, given albumin afterwards
- initiate HRS treatment today with albumin, octreotide and midodrine.
- mentating well
- trend BMP
-
-
Date of Service: August 30, 2023
CC / HPI / ROS
-
Chief Complaint:
MAURILIO
History of Present Illness:
Cr elevation to 2.8, normal baseline 0.7
+SBP
Review of Systems:
no complaints
Labs
-
Labs:
WBC 6.5 10^3/uL (4.8-10.8) 08/30/23 05:19
RBC 2.50 10^6/uL (4.70-6.10) L 08/30/23 05:19
Hgb 8.2 g/dL (13.0-18.0) L 08/30/23 05:19
Hct 22.5 % (39.0-52.0) L 08/30/23 05:19
Plt Count 47 10^3/uL (130-400) L D 08/30/23 05:19
Sodium 131 mmol/L (135-145) L 08/30/23 05:19
Potassium 4.0 mmol/L (3.5-5.1) 08/30/23 05:19
Chloride 103 mmol/L (98-107) 08/30/23 05:19
Carbon Dioxide 16 mmol/L (22-30) L 08/30/23 05:19
BUN 67 mg/dl (9-20) H 08/30/23 05:19
Creatinine 2.8 mg/dL (0.7-1.3) H 08/30/23 05:19
eGFR 22.53 08/30/23 05:19
Glucose 223 mg/dl (70-99) H 08/30/23 05:19
Calcium 8.5 mg/dl (8.4-10.2) 08/30/23 05:19
Vcq-H-Eewnqzmkeco Pept 3440 pg/ml 08/29/23 04:35
Albumin 3.0 g/dl (3.5-5.0) L 08/30/23 05:19
Physical Exam
-
Vital Signs:
Vital Signs
Temp Pulse Resp BP Pulse Ox
97.8 F 69 16 97/47 98
08/30/23 11:10 08/30/23 11:10 08/30/23 11:10 08/30/23 11:10 08/30/23 11:10
Cardiovascular:: Regular rate and rhythm
Respiratory:: Bilateral: CTA
Lung Excursion:: Normal
Abdomen:: Distended, Nontender and Soft
Bowel Sounds:: Normal
Extremity Edema:: None: Bilateral:
Rojas Catheter: No
[2023-08-30] MEDS: REFRESH EYE DROPS (PF) 1 DROPS BOTH EYES (13:30)
--- NOTE | 2023-08-30 14:36 | CON.ID ---
Consultation
-
Date/Time Consultation Requested: August 30, 2023 1124
Date/Time Consultation Performed: August 30, 2023 1435
Requesting Provider: Dr. David Edmond
Performing Provider: Dr. Abby Mena
Reason for Consultation: SBP
Chief Complaint / Past History
Chief Complaint
SOB
History of Present Illness
78-year-old male with diabetes mellitus, atrial fibrillation, CHF, alcohol cirrhosis, recurrent ascites who presented to the hospital August 28 due to increasing abdominal girth with shortness of breath. He was noted to be in MAURILIO. Yesterday he had 10
L of paracentesis which showed over 5500 white blood cells. Culture is growing gram-negative sugey. He is currently on Zosyn. Patient denies abdominal pain. No fever or chills. No diarrhea. He feels improved after the large-volume ascites
removal.
Past History
Additional Past Medical History:
DM2
Alcohol cirrhosis
Esophageal varices
Recurrent ascites
Hypertension
Atrial fibrillation
CHF
Hypertension
Retinal vein occlusion
Bilateral total knee replacements
Hernia repair with mesh
MOH's surgery
Allergy History:
alprazolam [From Xanax] Allergy (Verified 08/29/23 05:00)
NAUSEA/VOMITING
aspirin Allergy (Verified 08/29/23 05:00)
bad for liver
oxycodone Allergy (Verified 08/29/23 05:00)
hallucinations
tramadol Allergy (Verified 08/29/23 05:00)
extreme nausea
Medications Reviewed: Yes
Current Antibiotics:
Zosyn
Social History
Tobacco: Former Smoker
Alcohol: Former
Drug: None
Personal:
Family History
Family History: Not Pertinent
Review of Systems
Review of Systems
General: Negative Fever, Chills or Change in Appetite
HEENT: Negative Sinus Problems, Headache or Pharyngitis
Respiratory: Negative Dyspnea or Cough
Gasteroenterology: Negative Nausea or Vomiting
Genital / Urological: Negative Dysuria or Flank Pain
Endocrine: Weakness
Neurological: Negative Headache or Dizziness
Vital Signs
Temp Pulse Resp BP Pulse Ox
97.8 F 69 16 97/47 98
08/30/23 11:10 08/30/23 11:10 08/30/23 11:10 08/30/23 11:10 08/30/23 11:10
Physical Exam
Physical Exam
Constitutional: Chronically Ill and Cachetic
Cardiovascular: Regular Rate
Pulmonary: Other (decreased BS bases)
Gastrointestinal: Soft, Non Tender and Distended
Extremities: Negative Edema
Wound: Other (LLE + abrasions)
Neurological: AO x 3
Lab / Diagnostic Study Results
08/30/23 05:19
08/30/23 05:19
Abs Immat Gran (auto) 0.1 10^3/uL (0-0.05) H 08/30/23 05:19
Absolute Neuts (auto) 5.5 10^3/uL (1.4-6.5) 08/30/23 05:19
Absolute Lymphs (auto) 0.4 10^3/uL (1.2-3.4) L 08/30/23 05:19
Absolute Monos (auto) 0.5 10^3/uL (0.1-0.6) 08/30/23 05:19
Absolute Basos (auto) 0.0 10^3/uL (0-0.2) 08/30/23 05:19
Immature Gran % 0.8 % (0-0.5) H 08/30/23 05:19
Neutrophils % 85.2 % (42.2-75.2) H 08/30/23 05:19
Lymphocytes % 5.6 % (20.5-51.1) L 08/30/23 05:19
Monocytes % 7.3 % (1.7-9.3) 08/30/23 05:19
Eosinophils % 0.8 % (0-6) 08/30/23 05:19
Basophils % 0.3 % (0-2) 08/30/23 05:19
PT 21.5 Sec (11.4-14.6) H 08/30/23 05:19
INR 1.89 08/30/23 05:19
Lactic Acid 2.2 mmol/L (0.7-2.0) H 08/30/23 01:37
Urine WBC 3-5 /HPF (0-5) 08/29/23 15:40
Ur Squamous Epith Cells 3-5 /LPF (Few) 08/29/23 15:40
Microbiology Results
Micro:
08/29/23 10:24 Body Fluid Culture - Preliminary
Peritoneal Fluid Gram negative bacilli
Gram Stain - Preliminary
08/29/23 05:21 Blood Culture - Preliminary
Blood/Venous No Growth in 24 hours- Final report to follow
Assessment / Plan
# SBP
# alcohol cirrhosis
# MAURILIO
-Ascitic fluid >5,500 wbc.
-Ascitic cx GNR
- Continue Zosyn (renally adjusted )for now.
Will de-escalate abx when final cx data available.
--- NOTE | 2023-08-30 16:04 | CM ---
Case management following for d/c planning
Chart reviewed
Continue antibiotics. Following cx's
ID consult
Monitor labs
PT/OT pending
CM will follow for d/c needs
Plan - anticipates home with HH vs SNF when medically stable
[2023-08-30] MEDS: DUPHALAC/CHRONULAC 20 GRAMS PO ×2 (16:08→22:44)
[2023-08-30 17:42] LABS: Glucose - Point of Care 278 mg/dl (70-99)
[2023-08-30 21:47] LABS: Glucose - Point of Care 193 mg/dl (70-99)
[2023-08-30] MEDS: DESYREL 50 MG PO (22:44)
--- NOTE | 2023-08-31 03:05 | DOWNTIME ---
There was a [employer] Client [employer] Inspector Downtime on 08/31/2023 from 0100 to 08/31/2023 at 0255. Downtime documentation of patient's care, including medication administrations, has been reconciled in the electronic record per guidelines. Refer to the
patient's paper chart under the miscellaneous tab to see printed paper medication records and downtime forms.
[2023-08-31 03:21] VITALS: BP 104/57
[2023-08-31] MEDS: FLEXBUMIN 100 IV ×3 (04:04→20:16)
[2023-08-31] MEDS: ZOSYN 50 IV ×2 (05:56→12:17)
[2023-08-31 06:00] VITALS: BMI 20.8
[2023-08-31 07:00] LABS: % Basophils 0.2 % (0-2); % Eosinophils 1.1 % (0-6); % Immature Granulocytes 0.9 % (0-0.5); % Lymphocytes 5.3 % (20.5-51.1); % Neutrophils 81.5 % (42.2-75.2); Absolute Eosinophils 0.1 10^3/uL (0-0.7); Absolute Immature Granulocytes 0.1 10^3/uL (0-0.05); Absolute Lymphocytes 0.4 10^3/uL (1.2-3.4); Absolute Monocytes 0.7 10^3/uL (0.1-0.6); Absolute Neutrophils 5.4 10^3/uL (1.4-6.5); Hematocrit 23.5 % (39.0-52.0); Hemoglobin 8.5 g/dL (13.0-18.0); Mean Corp Hgb Conc. 36.2 g/dL (33.0-37.0); Mean Corpuscular Hgb 33.1 pg (27.0-31.0); Mean Corpuscular Volume 91.4 fL (80.0-94.0); Mean Platelet Volume 11.4 fL (7.4-10.4); Nucleated Red Blood Cells % 0 % (-); Platelet Count 46 10^3/uL (130-400); Red Blood Cell Count 2.57 10^6/uL (4.70-6.10); Red Cell Dist. Width 15.1 % (11.5-14.5); White Blood Cell Count 6.6 10^3/uL (4.8-10.8)
[2023-08-31 07:03] LABS: Ammonia 35 umol/L (9-30)
[2023-08-31 07:09] LABS: Glucose - Point of Care 154 mg/dl (70-99)
[2023-08-31 07:16] LABS: ALT (SGPT) 21 U/L (0-50); AST (SGOT) 24 U/L (17-59); Albumin 3.4 g/dl (3.5-5.0); Alkaline Phosphatase 88 U/L (38-126); Blood Urea Nitrogen 70 mg/dl (9-20); Calcium 8.9 mg/dl (8.4-10.2); Carbon Dioxide 18 mmol/L (22-30); Chloride 103 mmol/L (98-107); Estimated Creatinine Clearance 20 ml/min; Glucose 129 mg/dl (70-99); Potassium 3.6 mmol/L (3.5-5.1); Sodium 135 mmol/L (135-145); Total Bilirubin 2.3 mg/dl (0.2-1.3); Total Protein 6.1 g/dl (6.3-8.2); eGFR 22.53
[2023-08-31 07:17] LABS: INR 1.73; PT 20.1 Sec (11.4-14.6)
[2023-08-31 07:45] VITALS: BP 93/51
[2023-08-31] MEDS: VITAMIN D3 (cholecalciferol) 25 MCG PO (08:40)
[2023-08-31] MEDS: PROTONIX 40 MG PO (08:40)
[2023-08-31] MEDS: ProAmatine 5 MG PO ×3 (08:40→17:44)
[2023-08-31] MEDS: DUPHALAC/CHRONULAC 20 GRAMS PO ×3 (08:41→22:45)
[2023-08-31] MEDS: FEOSOL 325 MG PO (08:41)
[2023-08-31] MEDS: JANUVIA 25 MG PO (08:41)
[2023-08-31] MEDS: NOVOLOG FLEXPEN-LOW RESISTANCE 1 UNITS SC (08:41)
[2023-08-31] MEDS: HYDROPHOR 1 APPLIC TOPICAL (08:43)
[2023-08-31] MEDS: SANDOSTATIN 50 MCG IV ×3 (08:46→22:45)
--- NOTE | 2023-08-31 09:15 | W.PN.GI.CBS2 ---
Addendum entered and electronically signed by Kathryn Simms Do, MD 08/31/23 15:25:
I saw and examined the patient.
The HEEL SPLITTER's note was reviewed and I agree with the note.
Comment: Galdino is a 78yo M with Ant C ETOH cirrhosis decompensated by ascites, varices and PSE who was admitted for first episode of SBP. Vitals stable.
Plan
- Repeat paracentesis limit 1L . D/w IR
- C/w IV albumin
- C/w abx
- C/w lactulose BID
- C/w octreotide and midodrine per renal for HRS
- Phone d/w daughter/Izzy PANDEYA for 25mins about his prognosis and goals of care.
They are agreeable to hospice. Will relay info to hospitalist
Will follow with you
Original Note:
Today's Communication / Plan
-
Plan for small volume paracentesis today, albumin per nephrology. Culture+ serratia, antibiotics per ID. Continue lactulose
Assessment / Plan
-
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 Had 10 liter paracentesis on 08/15, and repeat
paracentesis on 08/29/23 was for another 10 liter tap. In reviewing with patient he has longstanding hx cirrhosis from ETOH for years. He quit ETOH 30 years ago and distant hx hepatology eval with no need for transplant. He did have period of
possible liver mass but further review of imaging not cancer related. Per records he began with need for paracentesis in March just prior to hernia repair. Prior to that he was managed with diuretic therapy. He was also noted with some
recent fall and mental status issue with ER visit in July that are now improved.
Problem list:
- Intractable ascites
- SBP
- s/p 10 L paracentesis 08/29/23, +SBP (ascites PMN [id number])
- s/p administration of 100g albumin 08/28
- Ascites 08/28 final culture: serratia marcescens
- On zosyn q6h. ID following
-hx ETOH cirrhosis quit ETOH 30 years ago
- MELD 3.0 score of 27 on admission, driven by MAURILIO --> 30 --> 27 today.
- Ammonia 20 --> 35 today.
-MAURILIO
- Nephrology following given concern for hepatorenal syndrome.
- History of varices
- Stable, no signs/symptoms of variceal bleeding.
- At this time, not a candidate for prophylaxis with nonselective beta hilda given poor renal function.
-elevated lactate level
-EV/portal HTN
-nodular regnerative hyperplasia
-recent fall with change in mental status changes with ER eval in July
other medical problems:
-afib not on anticoagulation
-DM
-skin CA
-HTN
-retinal occlusion
-thrombocytopenia
-retinal vein occlusion
-hypothyroidism
-cholelithiasis
Plan:
Intractable ascites, SBP
- Planned for additional 75g albumin on day 3 (08/30) following initial paracentesis on 08/28. However will defer to nephrology.
- Continue antibiotics for SBP, will defer to ID.
- Plan for paracentesis today to repeat ascites cell count with differential and chemistries to evaluate response to zosyn. If not responding, will consider further evaluation for source of secondary bacterial peritonitis. Will discuss limiting
volume of paracentesis to < 1L with IR, to avoid potential impact of a larger volume tap on BP.
- Continue lactulose PO 20g TID for concern of hepatic encephalopathy and rising ammonia levels. Continue to serial neuro exams.
- Continue alcohol abstinence.
- Will review goals of care discussions with patient and family.
Subjective
Subjective
Date of Service: August 31, 2023
No complaints this morning, though he notes his abdomen feels slightly more full than yesterday. He had brief mild abdominal pain last night and this morning, which resolved prior to my examination. He denies nausea, vomiting, diarrhea,
constipation, confusion, chest pain, shortness of breath. His last bowel movement was last night, and it was soft/loose brown/green; no black or bloody stools. He reports a good appetite and denies any pain/difficulty/coughing with swallowing;
however he previously admitted to his nurse that he occasionally feels like food goes down the wrong way.
Objective
Data Reviewed
Laboratory Data:
Laboratory Results
08/31/23 06:18
08/31/23 06:18
Laboratory Results
PT 20.1 Sec (11.4-14.6) H 08/31/23 06:18
INR 1.73 08/31/23 06:18
APTT 58.7 Sec (23.4-35.0) H 08/29/23 04:35
Magnesium 1.7 mg/dl (1.6-2.3) 08/30/23 05:19
Total Bilirubin 2.3 mg/dl (0.2-1.3) H 08/31/23 06:18
AST 24 U/L (17-59) 08/31/23 06:18
ALT 21 U/L (0-50) 08/31/23 06:18
Alkaline Phosphatase 88 U/L (38-126) 08/31/23 06:18
Lipase 327 U/L (23-300) H 08/29/23 04:35
Vital Signs and I&O:
Vital Signs
Temp Pulse Resp BP Pulse Ox
98.3 F 70 18 93/57 98
08/31/23 03:21 08/31/23 03:21 08/31/23 03:21 08/31/23 08:40 08/31/23 03:21
I&O
08/30/23 08/31/23 09/01/23
06:59 06:59 06:59
Intake Total 1939 590 / 590
Output Total 750 / 750 50 / 50
Balance 1190 / 1190 540 / 540
Physical Exam
Physical Exam
General: Resting comfortably in bed, no acute distress. Awake, alert; oriented to person, place, time, reason for admission. Cachectic appearance. Jaundiced.
Heart: Regular rate and rhythm.
Lungs: Nonlabored breathing. Anterior lung gamble clear and equal to auscultation bilaterally.
GI: Normal bowel sounds present. Abdomen soft, distended, nontender. No rebound, rigidity, guarding.
Extremities: No asterixis of upper extremities. Dressings on left lower leg/foot clean dry intact. No edema.
--- NOTE | 2023-08-31 10:21 | W.PN.NEPH.PH ---
Today's Communication / Plan
-
increase midodrine
Assessment/Plan
-
Assessment:
MAURILIO
NAGMA
mild hyponatremia
Plan:
increase midodrine
hold jardiance
follow BMP
continue albumin
prognois is poor fdc
-
-
Date of Service: August 31, 2023
CC / HPI / ROS
-
Chief Complaint:
MAURILIO
History of Present Illness:
Cr elevation to 2.8 and unchanged, normal baseline 0.7
+SBP on abx
BP low on midodrine
Review of Systems:
no CP/SOB
Labs
-
Labs:
WBC 6.6 10^3/uL (4.8-10.8) 08/31/23 06:18
RBC 2.57 10^6/uL (4.70-6.10) L 08/31/23 06:18
Hgb 8.5 g/dL (13.0-18.0) L 08/31/23 06:18
Hct 23.5 % (39.0-52.0) L 08/31/23 06:18
Plt Count 46 10^3/uL (130-400) L 08/31/23 06:18
Sodium 135 mmol/L (135-145) 08/31/23 06:18
Potassium 3.6 mmol/L (3.5-5.1) 08/31/23 06:18
Chloride 103 mmol/L (98-107) 08/31/23 06:18
Carbon Dioxide 18 mmol/L (22-30) L 08/31/23 06:18
BUN 70 mg/dl (9-20) H 08/31/23 06:18
Creatinine 2.8 mg/dL (0.7-1.3) H 08/31/23 06:18
eGFR 22.53 08/31/23 06:18
Glucose 129 mg/dl (70-99) H 08/31/23 06:18
Calcium 8.9 mg/dl (8.4-10.2) 08/31/23 06:18
Mqn-I-Ovslnaueezi Pept 3440 pg/ml 08/29/23 04:35
Albumin 3.4 g/dl (3.5-5.0) L 08/31/23 06:18
Physical Exam
-
Vital Signs:
Vital Signs
Temp Pulse Resp BP Pulse Ox
97 F 67 16 93/57 96
08/31/23 07:45 08/31/23 07:45 08/31/23 07:45 08/31/23 08:40 08/31/23 07:45
Cardiovascular:: Regular rate and rhythm
Respiratory:: Bilateral: CTA
Lung Excursion:: Normal
Abdomen:: Distended and Nontender
Bowel Sounds:: Normal
Extremity Edema:: None: Bilateral:
[2023-08-31] MEDS: REFRESH EYE DROPS (PF) 1 DROPS BOTH EYES (10:24)
--- NOTE | 2023-08-31 10:32 | PN.CDI ---
CDI
- -
CDI:
Physician Documentation Request
Admit Date: 08/29/23 07:34
Dear Doctor Mayito,
Please review the following and provide your response in the progress notes.
Clinical Indicators:
Pt admitted with Alcoholic cirrhosis, cellulitis, and lactic acidosis.
Documentation in the record on includes the diagnosis of MAURILIO. The following clinical information was noted in the record:
08/28 H&P: 'MAURILIO Creat 2.6 (baseline is closer to 1.0), concern for hepatorenal syndrome'
08/29 Progress Note: 'renal insufficiency (baseline is closer to 1.0), Cr now 2.8'
08/29 Nephrology Note: 'MAURILIO- likely in the setting of hepatorenal disease vs SBP vs. other pre-renal.'
Laboratory Tests
08/29/23 08/30/23 08/31/23
04:35 05:19 06:18
Creatinine 2.7 H 2.8 H 2.8 H
Bases on the above information, the clinical indicators, and the potential conflicting documentation in the record, please clarify in the Progress Notes which of the following most accurately represents the patient's renal status:
Acute kidney injury
Renal Insufficiency Only
Other
Criteria for MAURILIO*
1 Increase in serum creatinine by > or = to 0.3 mg/dL (> or = to 26.5 micromol/L) within 48 hours, OR
2 Increase in serum creatinine to > or = to 1.5 times baseline, which is known or presumed to have occurred within 7 days, OR
3 Urine volume < 0.5 nL/kg/hour for six hours
Use of terms such as suspected, likely, concern for, or probable (associated with a specific diagnosis that is being evaluated, monitored, or treated as if it exists) are acceptable and can be coded in the inpatient setting, when documented at the
time of discharge.
Thank you,
Izzy Brunner RN, BSN
CDI Specialist
Available via [place] [employer]
Please use your independent medical judgment in providing your response.
*Source: Kidney Disease: Improving Global Outcomes (KDIGO) 2012
--- NOTE | 2023-08-31 10:44 | W.PN.HOSP.TC ---
Addendum entered and electronically signed by David Edmond MD 08/31/23 14:46:
Daughter updated. ordered MRI. Patient has been having intermittent manic episodes and forgetfulness lately.
Original Note:
Today's Communication/Plan
-
Monitor vital signs see plan
Monitor renal function
Continue with midodrine, albumin, octreotide
Para again today
Speech evaluation
cw abx
bladder scan
Assessment / Plan
Assessment / Plan
General: Appears Chronically Ill
HEENT: NormoCephalic, Anicteric
Respiratory: Clear
Cardiac: S1/S2 and Regular Rhythm
GI: Other (fluid wave, large ascites, no tenderness)
Musculoskeletal: No Edema
Skin: Warm and Lesions (blister, dry on bottom of left foot, excoriations left ankle, erythema left ankle)
Neuro: AO x 3, No Motor Deficits and Nonfocal/grossly intact
Psych: Calm
Recurrent severe symptomatic ascites
s/p 10L para 7/; per labs concerning for SBP, fluid cx grew serratia. already on zosyn follow labs. on albumin
GI following
-hold PO Lasix and monitor BP, hold spironolactone for now
monitor for SBP
ID following
plan for para again 08/30
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
#renal insufficiency (baseline is closer to 1.0)
Cr now 2.8
concern for hepatorenal syndrome, likely multifactorial due to cirrhosis, volume depletion, possible sepsis from cellulitis
-Nephro Cx appreciated
cw albumin; monitor; On midodrine, octreotide
nephrology following
Hyperammonemia
Continue with lactulose
Monitor
Subjective complain of difficulty swallowing
Speech evaluation
Hyponatremia
Monitor
Anemia, likely anemia of chronic disease
Monitor
Intermittent urinary retention
Continue to monitor
Bladder scan
Chest x-ray with hazy opacity on lateral view, could be suggestive of left lower lobe pneumonia or atelectasis
Currently denies any cough, does not appear to have pneumonia.
#Esophageal Varices, history of, no active bleeding
#LLE cellulitis
Lactic acidosis, trend lactate
-blood cultures
-Continue IV Zosyn, which will also cover possible SBP
#Thrombocytopenia, chronic
Monitor platelets, likely secondary to cirrhosis
possible bifascicular block
Severe protein calorie Malnutrition
#Type 2 DM
hold Januvia
-hold Metformin
#Depression
# HTN, holding BP meds for now pending paracentesis and fluids
-monitor closely
# DJD
compression fx on lumbar spine; monitor
# Retinal vein occlusion, history of
#hx of CHFpEF, not in exacerbation
#Atrial fibrillation,paroxysmal
-cont low dose BB with hold parameters
-monitor on tele
DVT proph-SCD's
Full Code; discussed this admission. Wants to remain full code
I spent a total of 51 minutes with the patient or on the floor. More than 50% of this time involved counseling and coordination of care.
Anticipated Discharge: > 48 hours
Subjective/Interval History
-
Date of Service: August 31, 2023
has some pain
Objective Data
-
Labs:
Laboratory Results
08/31/23
06:18
WBC 6.6
Hgb 8.5 L
Hct 23.5 L
Plt Count 46 L
PT 20.1 H
INR 1.73
Sodium 135
Potassium 3.6
Chloride 103
Carbon Dioxide 18 L
BUN 70 H
Creatinine 2.8 H
Glucose 129 H
Calcium 8.9
Total Bilirubin 2.3 H
AST 24
ALT 21
Alkaline Phosphatase 88
Vital Signs:
Vital Signs
Temp Pulse Resp BP Pulse Ox
97 F 67 16 93/57 96
08/31/23 07:45 08/31/23 07:45 08/31/23 07:45 08/31/23 08:40 08/31/23 07:45
I&O
08/30/23 08/31/23 09/01/23
06:59 06:59 06:59
Intake Total 1940 / 1940 590 / 590
Output Total 750 / 750 50 / 50 300 / 300
Balance 1190 / 1190 540 / 540 -300 / -300
--- NOTE | 2023-08-31 10:59 | PTCARENOTE ---
pt verbalized lower abd discomfort this AM. this was communicated to MD and GI. pt bladder scanned for 682ml post void of 220ml of latasha colored urine into the urinal. MD made aware and this nurse and MD were in agreement to straight cath. pt
straight cathed for another 300ml of clear latasha colored urine. MD made aware and thinking residual on the bladder scan was coming from pt's significant amount of abd ascites. pt taken down around 1015 for another paracentesis this AM. bed changed
out and static air overlay added for skin breakdown prevention.
[2023-08-31 11:30] VITALS: BP 112/59
[2023-08-31 11:44] LABS: Glucose - Point of Care 206 mg/dl (70-99)
[2023-08-31 12:10] LABS: Body Fluid Amylase 43 U/L
[2023-08-31] MEDS: NOVOLOG FLEXPEN-LOW RESISTANCE 2 UNITS SC ×2 (12:16→17:48)
[2023-08-31 12:59] LABS: Body Fluid Mononuclear 17.1 %; Body Fluid Polymorphonuclear 82.9 %
[2023-08-31 13:21] LABS: Body Fluid WBC 2139 /CUMM
--- NOTE | 2023-08-31 13:52 | PTOTSP ---
Speech Therapy Swallowing Assessment
Patient without gross signs of aspiration but does have fairly consistent throat clearing with thin liquids. Patient also complains of pills sticking in his throat.
Recommend
1. Continue Regular Solids and Thin Liquids
2. VSE to objectively assess pharyngeal phase of swallow.
3. Meds with liquid as tolerated. Otherwise whole in applesauce.
4. Aspiration Precautions
5. Further recommendations pending results of VSE.
[2023-08-31 14:15] LABS: Body Fluid Second Tech LD
--- NOTE | 2023-08-31 14:47 | W.PN.ID1 ---
Date of Service
Date of Service: August 31, 2023
Today's Communication
transition Zosyn (d3) to cipro 500mg po q24h through 09/07/23.
Assessment / Plan
# SBP
# alcohol cirrhosis
# MAURILIO
-Ascitic fluid >5,500 wbc.
-Ascitic cx Serratia
- transition Zosyn (d3) to cipro 500mg po q24h through 09/07/23.
#Additional Past Medical History:
DM2
Alcohol cirrhosis
Esophageal varices
Recurrent ascites
Hypertension
Atrial fibrillation
CHF
Hypertension
Retinal vein occlusion
Bilateral total knee replacements
Hernia repair with mesh
MOH's surgery
Chief Complaint
-: Other (SBP)
Subjective / Review of Systems
No abdominal pain
Vital Signs / Physical Exam
Vital Signs
Vital Signs
Temp Pulse Resp BP Pulse Ox
97.9 F 64 18 112/59 98
08/31/23 11:30 08/31/23 11:30 08/31/23 11:30 08/31/23 11:30 08/31/23 11:30
Physical Exam
Constitutional: No Acute Distress and Comfortable
Gastrointestinal: Soft, Non Tender and Distended
Extremities: Negative Edema
Objective Data
Lab Data
Lab Results
08/31/23 06:18
08/31/23 06:18
PT 20.1 Sec (11.4-14.6) H 08/31/23 06:18
INR 1.73 08/31/23 06:18
APTT 58.7 Sec (23.4-35.0) H 08/29/23 04:35
Estimated Creat Clear 20 ml/min 08/31/23 06:18
Lactic Acid 2.2 mmol/L (0.7-2.0) H 08/30/23 01:37
Total Bilirubin 2.3 mg/dl (0.2-1.3) H 08/31/23 06:18
AST 24 U/L (17-59) 08/31/23 06:18
ALT 21 U/L (0-50) 08/31/23 06:18
Alkaline Phosphatase 88 U/L (38-126) 08/31/23 06:18
Most recent labs reviewed.
Micro Results:
08/31/23 11:00 Body Fluid Culture - Pending
Peritoneal Fluid Gram Stain - Preliminary
08/29/23 10:24 Body Fluid Culture - Final
Peritoneal Fluid Serratia marcescens
Gram Stain - Final
08/29/23 05:21 Blood Culture - Preliminary
Blood/Venous No Growth in 48 hours- Final report to follow
[2023-08-31 15:10] VITALS: BP 120/64
--- NOTE | 2023-08-31 15:43 | CM ---
Received CM consult for hospice from attending after speaking with the patient's daughter. Referral sent to Hospice. Reviewed the chart notes and spoke with the patient at the bedside. Review PTs recommendation for SNF. Patient is not on
hospice would be agreeable to referrals being sent to [facility]Fs. Precert would be required. Patient has [facility] [employer], not all facilities participate with [employer] products. CM continues to be available to patient/family and is monitoring medical plan
for needs at discharge.
Plan: Discharge plans will depend on progress. SNF vs hospice.
[2023-08-31 17:13] LABS: Glucose - Point of Care 241 mg/dl (70-99)
[2023-08-31] MEDS: CIPRO 500 MG PO (17:48)
--- NOTE | 2023-08-31 18:08 | PTCARENOTE ---
hospice consult in the morning.
[2023-08-31 19:00] VITALS: BP 109/58
[2023-08-31 21:49] LABS: Glucose - Point of Care 378 mg/dl (70-99)
[2023-08-31] MEDS: NOVOLOG FLEXPEN 5 UNITS SC (22:44)
[2023-08-31] MEDS: DESYREL 50 MG PO (22:45)
[2023-08-31 23:27] VITALS: BP 106/55
[2023-09-01] VITALS (8 sets, daily range): BP systolic 100–119; BP diastolic 48–63; PULSE 65; O2SAT 97–98; BMI 20.1
[2023-09-01 00:57] LABS: Glucose - Point of Care 283 mg/dl (70-99)
[2023-09-01] MEDS: FLEXBUMIN 100 IV ×3 (04:23→21:34)
[2023-09-01 07:14] LABS: Ammonia 40 umol/L (9-30)
[2023-09-01 07:25] LABS: Glucose - Point of Care 252 mg/dl (70-99)
[2023-09-01 07:33] LABS: % Basophils 0.1 % (0-2); % Eosinophils 1.1 % (0-6); % Immature Granulocytes 1.5 % (0-0.5); % Lymphocytes 4.7 % (20.5-51.1); % Monocytes 14.2 % (1.7-9.3); % Neutrophils 78.4 % (42.2-75.2); Absolute Eosinophils 0.1 10^3/uL (0-0.7); Absolute Immature Granulocytes 0.1 10^3/uL (0-0.05); Absolute Lymphocytes 0.4 10^3/uL (1.2-3.4); Absolute Monocytes 1.1 10^3/uL (0.1-0.6); Absolute Neutrophils 6.3 10^3/uL (1.4-6.5); Hematocrit 24.8 % (39.0-52.0); Hemoglobin 8.9 g/dL (13.0-18.0); Mean Corp Hgb Conc. 35.9 g/dL (33.0-37.0); Mean Corpuscular Hgb 32.8 pg (27.0-31.0); Mean Corpuscular Volume 91.5 fL (80.0-94.0); Mean Platelet Volume 11.6 fL (7.4-10.4); Nucleated Red Blood Cells % 0 % (-); Platelet Count 48 10^3/uL (130-400); Red Blood Cell Count 2.71 10^6/uL (4.70-6.10)
[2023-09-01 07:35] LABS: ALT (SGPT) 18 U/L (0-50); AST (SGOT) 19 U/L (17-59); Albumin 3.6 g/dl (3.5-5.0); Alkaline Phosphatase 98 U/L (38-126); Blood Urea Nitrogen 71 mg/dl (9-20); Calcium 8.6 mg/dl (8.4-10.2); Carbon Dioxide 17 mmol/L (22-30); Chloride 103 mmol/L (98-107); Estimated Creatinine Clearance 21 ml/min; Glucose 226 mg/dl (70-99); Potassium 3.4 mmol/L (3.5-5.1); Sodium 136 mmol/L (135-145); Total Bilirubin 2.2 mg/dl (0.2-1.3); Total Protein 6.2 g/dl (6.3-8.2); eGFR 24.63
--- NOTE | 2023-09-01 08:45 | W.PN.GI.CBS2 ---
Addendum entered and electronically signed by Kathryn Simms Do, MD 09/01/23 12:52:
I saw and examined the patient.
The ENVIRONMENTAL RESEARCH SCIENTIST's note was reviewed and I agree with the note.
Comment: Galdino is a 78yo M with Ant C ETOH cirrhosis decompensated by large volume ascites with SBP. Vitals reviewed. Exam no asterixis but mild confusion and bitemporal wasting. Labs reviewed
Plan
- Repeat paracentesis 08/30 with improvement in SBP
- C/w ABX per ID. Will need lifelong outpatient basis as well
- Add xifaximin
Pt and POA agreeable to hospice. GI will sign off please call for questions
Hospitalist and RN updated
Original Note:
Today's Communication / Plan
-
Continue lactulose, and add xifaximin. Goals of care reviewed with POA yesterday, and case management consulted.
Assessment / Plan
-
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 Had 10 liter
paracentesis on 08/15, and repeat paracentesis on 08/29/23 was for another 10 liter tap. In reviewing with patient he has longstanding hx cirrhosis from ETOH for years. He quit ETOH 30 years ago and distant hx hepatology eval with no need for
transplant. He did have period of possible liver mass but further review of imaging not cancer related. Per records he began with need for paracentesis in March just prior to hernia repair. Prior to that he was managed with diuretic
therapy. He was also noted with some recent fall and mental status issue with ER visit in July that are now improved.
Problem list:
- Intractable ascites
- SBP
- s/p 10 L paracentesis 08/29/23 and 100g albumin, +SBP (ascites PMN 4966)
- Ascites 08/28 final culture: serratia marcescens
- repeat paracentesis performed 08/30, 1L clear yellow fluid drained; ascites PMN count 1773, downtrending from prior level which indicates appropriate response to antibiotics
- Was on zosyn q6h 08/28-08/30 --> transitioned to cipro 500mg po q24h per ID
- ID following
-hx ETOH cirrhosis quit ETOH 30 years ago
- MELD 3.0 score of 27 on admission, driven by MAURILIO --> 30 --> 27.
- Ammonia 20 --> 35
- Discussed prognosis and goals of care 08/30 with POA/daughter Izzy.
-MAURILIO
- On midodrine, albumin, octreotide for HRS treatment per nephrology
- Cr 2.6-2.8 this hospitalization, baseline of 0.7
- Nephrology following
- History of varices
- Stable, no signs/symptoms of variceal bleeding.
- At this time, not a candidate for prophylaxis with nonselective beta hilda given poor renal function.
-elevated lactate level
-EV/portal HTN
-nodular regenerative hyperplasia
-recent fall with change in mental status changes with ER eval in July
other medical problems:
-afib not on anticoagulation
-DM
-skin CA
-HTN
-retinal occlusion
-thrombocytopenia
-retinal vein occlusion
-hypothyroidism
-cholelithiasis
Plan:
- Continue cipro for SBP treatment until 09/06, per ID. Recommend continuing lifelong PO antibiotics for SBP prophylaxis.
- Continue albumin, midodrine, octreotide per nephrology.
- Continue lactulose PO 20g BID for hepatic encephalopathy. Given ongoing confusion and minimal bowel movements, will add xifaximin 550 mg PO BID.
- Continue alcohol abstinence.
- Case management consulted and discussed SNF vs. hospice yesterday. Will continue goals of care discussion with patient and family.
Subjective
Subjective
Date of Service: September 01, 2023
No complaints this morning. Denies abdominal pain, nausea, vomiting. He feels his abdominal distension is the same as yesterday, not getting worse. He enjoyed having both of his daughters visit yesterday, and he said they might bring his to
visit, which he's looking forward to.
Objective
Data Reviewed
Laboratory Data:
Laboratory Results
09/01/23 06:40
09/01/23 06:40
Laboratory Results
PT 20.1 Sec (11.4-14.6) H 08/31/23 06:18
INR 1.73 08/31/23 06:18
APTT 58.7 Sec (23.4-35.0) H 08/29/23 04:35
Magnesium 1.7 mg/dl (1.6-2.3) 08/30/23 05:19
Total Bilirubin 2.2 mg/dl (0.2-1.3) H 09/01/23 06:40
AST 19 U/L (17-59) 09/01/23 06:40
ALT 18 U/L (0-50) 09/01/23 06:40
Alkaline Phosphatase 98 U/L (38-126) 09/01/23 06:40
Lipase 327 U/L (23-300) H 08/29/23 04:35
Vital Signs and I&O:
Vital Signs
Temp Pulse Resp BP Pulse Ox
98.6 F 68 18 100/48 98
09/01/23 03:05 09/01/23 03:05 09/01/23 03:05 09/01/23 03:05 09/01/23 03:05
I&O
08/31/23 09/01/23 09/02/23
06:59 06:59 06:59
Intake Total 590 / 590 1790 / 1790
Output Total 50 / 50 1570 / 1570
Balance 540 / 540 220 / 220
Physical Exam
Physical Exam
General: Resting comfortably in bed, no acute distress. Awake, alert, oriented x4. Cachectic appearance
Heart: Regular rate and rhythm.
Lungs: Nonlabored breathing. Anterior lung gamble clear and equal to auscultation bilaterally.
GI: Normal bowel sounds present. Abdomen soft, nontender. Distension present, consistent with yesterday's exam. No rebound, rigidity, guarding. Dilated veins visible on abdominal surface.
--- NOTE | 2023-09-01 08:45 | W.PN.ID1 ---
Date of Service
Date of Service: September 01, 2023
Today's Communication
- Continue cipro 500mg po q24h through 09/07/23.
- ID will sign off. call prn
Assessment / Plan
# SBP - first episode
# alcohol cirrhosis with varices, recurrent ascites
# MAURILIO
-Ascitic fluid >5,500 wbc improved to 2139 in 2 days
-08/28 Ascitic cx Serratia
- Continue cipro 500mg po q24h through 09/07/23.
- Data regarding abx prophylaxis for SBP is equivocal.
Since this is his first episode, recommend treat then observe
- ID will sign off. Call prn
#Additional Past Medical History:
DM2
Alcohol cirrhosis
Esophageal varices
Recurrent ascites
Hypertension
Atrial fibrillation
CHF
Hypertension
Retinal vein occlusion
Bilateral total knee replacements
Hernia repair with mesh
MOH's surgery
Chief Complaint
-: Other (SBP)
Subjective / Review of Systems
No abdominal pain
Vital Signs / Physical Exam
Vital Signs
Vital Signs
Temp Pulse Resp BP Pulse Ox
98.6 F 68 18 100/48 98
09/01/23 03:05 09/01/23 03:05 09/01/23 03:05 09/01/23 03:05 09/01/23 03:05
Physical Exam
Constitutional: Comfortable
Gastrointestinal: Soft, Non Tender and Distended (moderate)
Extremities: Negative Edema
Objective Data
Lab Data
Lab Results
09/01/23 06:40
09/01/23 06:40
PT 20.1 Sec (11.4-14.6) H 08/31/23 06:18
INR 1.73 08/31/23 06:18
APTT 58.7 Sec (23.4-35.0) H 08/29/23 04:35
Estimated Creat Clear 21 ml/min 09/01/23 06:40
Lactic Acid 2.2 mmol/L (0.7-2.0) H 08/30/23 01:37
Total Bilirubin 2.2 mg/dl (0.2-1.3) H 09/01/23 06:40
AST 19 U/L (17-59) 09/01/23 06:40
ALT 18 U/L (0-50) 09/01/23 06:40
Alkaline Phosphatase 98 U/L (38-126) 09/01/23 06:40
Most recent labs reviewed.
Micro Results:
08/29/23 05:21 Blood Culture - Preliminary
Blood/Venous No Growth in 72 hours- Final report to follow
08/31/23 11:00 Body Fluid Culture - Pending
Peritoneal Fluid Gram Stain - Preliminary
08/29/23 10:24 Body Fluid Culture - Final
Peritoneal Fluid Serratia marcescens
Gram Stain - Final
[2023-09-01] MEDS: VITAMIN D3 (cholecalciferol) 25 MCG PO (09:27)
[2023-09-01] MEDS: FEOSOL 325 MG PO (09:27)
[2023-09-01] MEDS: ProAmatine 5 MG PO ×3 (09:27→17:16)
[2023-09-01] MEDS: KCL 40 MEQ PO (09:27)
[2023-09-01] MEDS: DUPHALAC/CHRONULAC 20 GRAMS PO ×3 (09:27→21:31)
[2023-09-01] MEDS: HYDROPHOR 1 APPLIC TOPICAL (09:27)
[2023-09-01] MEDS: PROTONIX 40 MG PO (09:27)
[2023-09-01] MEDS: SANDOSTATIN 50 MCG IV ×3 (09:28→21:32)
[2023-09-01] MEDS: NOVOLOG FLEXPEN-LOW RESISTANCE 3 UNITS SC ×2 (10:17→17:17)
[2023-09-01] MEDS: XIFAXAN 550 MG PO ×2 (10:47→21:31)
[2023-09-01 11:36] LABS: Glucose - Point of Care 321 mg/dl (70-99)
--- NOTE | 2023-09-01 11:43 | W.PN.NEPH.PH ---
Today's Communication / Plan
-
K
Assessment/Plan
-
Assessment:
MAURILIO b/l 0.7
NAGMA
mild hyponatremia
Plan:
continue increased midodrine
holding jardiance
follow BMP
stop albumin
replete K
prognosis is poor terminal supervisor
-
-
Date of Service: September 01, 2023
CC / HPI / ROS
-
Chief Complaint:
MAURILIO
History of Present Illness:
MAURILIO/Cr down to 2.6, normal baseline 0.7
SBP on abx
BP better on higher dose midodrine
K low today 3.4
Review of Systems:
no CP/SOB
Labs
-
Labs:
WBC 8.0 10^3/uL (4.8-10.8) 09/01/23 06:40
RBC 2.71 10^6/uL (4.70-6.10) L 09/01/23 06:40
Hgb 8.9 g/dL (13.0-18.0) L 09/01/23 06:40
Hct 24.8 % (39.0-52.0) L 09/01/23 06:40
Plt Count 48 10^3/uL (130-400) L 09/01/23 06:40
Sodium 136 mmol/L (135-145) 09/01/23 06:40
Potassium 3.4 mmol/L (3.5-5.1) L 09/01/23 06:40
Chloride 103 mmol/L (98-107) 09/01/23 06:40
Carbon Dioxide 17 mmol/L (22-30) L 09/01/23 06:40
BUN 71 mg/dl (9-20) H 09/01/23 06:40
Creatinine 2.6 mg/dL (0.7-1.3) H 09/01/23 06:40
eGFR 24.63 09/01/23 06:40
Glucose 226 mg/dl (70-99) H 09/01/23 06:40
Calcium 8.6 mg/dl (8.4-10.2) 09/01/23 06:40
Qlj-P-Owdzqvsfniv Pept 3440 pg/ml 08/29/23 04:35
Albumin 3.6 g/dl (3.5-5.0) 09/01/23 06:40
Physical Exam
-
Vital Signs:
Vital Signs
Temp Pulse Resp BP Pulse Ox
97.9 F 78 16 107/58 98
09/01/23 11:00 09/01/23 11:00 09/01/23 11:00 09/01/23 11:00 09/01/23 11:00
Cardiovascular:: Regular rate and rhythm
Respiratory:: Bilateral: Coarse
Lung Excursion:: Normal
Abdomen:: Nontender and Soft
Bowel Sounds:: Normal
Extremity Edema:: None: Bilateral:
--- NOTE | 2023-09-01 11:49 | HOSPNOTE ---
Addendum entered by Suad Martinez RN 09/01/23 12:14:
Spoke at length with joyce Magana. At this time the family and patient would like patient discharged to home with VN and Palliative care. The family will reach out to me when hospice is needed which will be soon the patient needs some time to
get some things in order. Family and patient in agreement with discharge to home tomorrow 09/02/23.
Original Note:
Left a message to speak with joyce Magana to discuss hospice and the philosophy. Will await a call back.
[2023-09-01] MEDS: NOVOLOG FLEXPEN-LOW RESISTANCE 4 UNITS SC (12:27)
--- NOTE | 2023-09-01 12:40 | W.PN.HOSP.TC ---
Today's Communication/Plan
-
Monitor vital signs and see plan
Poor prognosis, GI and I discussed with patient and his daughter. project manager industrial consulted for hospice evaluation
DNR
cw abx
Assessment / Plan
Assessment / Plan
General: Appears Chronically Ill
HEENT: NormoCephalic, Anicteric
Respiratory: Clear
Cardiac: S1/S2 and Regular Rhythm
GI: Other (fluid wave, large ascites, no tenderness)
Musculoskeletal: No Edema
Skin: Warm and Lesions (blister, dry on bottom of left foot, excoriations left ankle, erythema left ankle)
Neuro: AO x 3, No Motor Deficits and Nonfocal/grossly intact
Psych: Calm
Recurrent severe symptomatic ascites
s/p 10L para 7/5; per labs concerning for SBP, fluid cx grew serratia. already on zosyn follow labs. on albumin
GI following
-hold PO Lasix and monitor BP, hold spironolactone for now
monitor for SBP
ID following
plan for para again 08/30
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
#renal insufficiency (baseline is closer to 1.0)
Cr now 2.6
concern for hepatorenal syndrome, likely multifactorial due to cirrhosis, volume depletion, possible sepsis from cellulitis
-Nephro Cx appreciated
cw albumin; monitor; On midodrine, octreotide
nephrology following
Hyperammonemia
Continue with lactulose
Monitor
Recently declining mental status, MRI negative for any acute CVA. Could be secondary to declining status due to SBP, worsening renal function. No signs of psychosis at this time
Subjective complain of difficulty swallowing
Speech evaluation; VSE noted. Now on IDDS 6 diet with mildly thick liquids
Hyponatremia
Monitor
Hypokalemia
replete
Anemia, likely anemia of chronic disease
Monitor
Intermittent urinary retention
Continue to monitor
Bladder scan
Chest x-ray with hazy opacity on lateral view, could be suggestive of left lower lobe pneumonia or atelectasis
Currently denies any cough, does not appear to have pneumonia.
#Esophageal Varices, history of, no active bleeding
#LLE cellulitis
Lactic acidosis, trend lactate
-blood cultures
-Continue IV Zosyn, which will also cover possible SBP
#Thrombocytopenia, chronic
Monitor platelets, likely secondary to cirrhosis
possible bifascicular block
Severe protein calorie Malnutrition
#Type 2 DM
hold Januvia
-hold Metformin
#Depression
# HTN, holding BP meds for now pending paracentesis and fluids
-monitor closely
# DJD
compression fx on lumbar spine; monitor
# Retinal vein occlusion, history of
#hx of CHF with preserved EF, not in exacerbation
#Atrial fibrillation,paroxysmal
-cont low dose BB with hold parameters
-monitor on tele
DVT proph-SCD's
discussed CODE STATUS again with patient and at this time he is agreeable for DNR
GI and I discussed with patient and his daughter regarding declining prognosis. Patient and daughter both agreeable on hospice evaluation. project manager industrial consulted for hospice.
I spent a total of 52 minutes with the patient or on the floor. More than 50% of this time involved counseling and coordination of care.
Anticipated Discharge: 24 - 48 hours
Subjective/Interval History
-
Date of Service: September 01, 2023
denies pain
Objective Data
-
Labs:
Laboratory Results
09/01/23
06:40
WBC 8.0
Hgb 8.9 L
Hct 24.8 L
Plt Count 48 L
Sodium 136
Potassium 3.4 L
Chloride 103
Carbon Dioxide 17 L
BUN 71 H
Creatinine 2.6 H
Glucose 226 H
Calcium 8.6
Total Bilirubin 2.2 H
AST 19
ALT 18
Alkaline Phosphatase 98
Vital Signs:
Vital Signs
Temp Pulse Resp BP Pulse Ox
97.9 F 78 16 107/58 98
09/01/23 11:00 09/01/23 11:00 09/01/23 11:00 09/01/23 11:00 09/01/23 11:00
I&O
08/31/23 09/01/23 09/02/23
06:59 06:59 06:59
Intake Total 590 / 590 1790 / 1790
Output Total 50 / 50 1570 / 1570
Balance 540 / 540 220 / 220
--- NOTE | 2023-09-01 13:43 | PTOTSP ---
Video Swallow Examination
There was limited epiglottic inversion, reduced pharyngeal stripping action, and incomplete distension of PES. Collectively this resulted in vallecular and pyriform sinus stasis. Laryngeal penetration arose from this retention with eventual
aspiration on some trials. One instance of aspiration due to delayed swallow. Majority of aspiration events occurred with thin liquid and without responsive cough.
Recommend
1. Downgrade to IDDSI 6 and Mildly Thick Liquids
2. Dry swallow with all solids/liquids
3. Large pills crushed in applesauce.
4. Aspiration precautions
5. Allow sips of water in between meals per [facility].
6. ST will follow and follow up therapy is recommended after discharge with aim of improving pharyngeal strength, cough strength, airway protection and advance diet as tolerated.
--- NOTE | 2023-09-01 15:31 | CM ---
Reviewed the chart notes and spoke with the patient at the bedside. IMM signed and placed on the chart. Per Suad, Hospice VN patient will discharge to home on hospice. Requesting to have patient ready for for 1pm transport. Daughter Izzy
in agreement with ambulance transport since patient has no safety awareness for seated position. Patient is a maximum assist for body positioning. CM continues to be available to patient/family and is monitoring medical plan for needs at discharge.
Plan: Discharge to home on hospice tomorrow.
Medical and transport forms on chart.
[2023-09-01] MEDS: CIPRO 500 MG PO (17:16)
[2023-09-01 17:18] LABS: Glucose - Point of Care 253 mg/dl (70-99)
[2023-09-01 21:21] LABS: Glucose - Point of Care 327 mg/dl (70-99)
[2023-09-01] MEDS: DESYREL 50 MG PO (21:33)
[2023-09-01] MEDS: NOVOLOG FLEXPEN 4 UNITS SC (21:59)
[2023-09-02 03:40] VITALS: BP 110/57
[2023-09-02] MEDS: FLEXBUMIN 100 IV (03:53)
[2023-09-02 05:54] VITALS: BMI 20.1
[2023-09-02 07:30] VITALS: BP 96/51
[2023-09-02 08:02] LABS: Ammonia < 9 umol/L (9-30)
[2023-09-02 08:03] LABS: ALT (SGPT) 15 U/L (0-50); AST (SGOT) 18 U/L (17-59); Albumin 3.7 g/dl (3.5-5.0); Alkaline Phosphatase 87 U/L (38-126); Blood Urea Nitrogen 68 mg/dl (9-20); Calcium 8.8 mg/dl (8.4-10.2); Carbon Dioxide 19 mmol/L (22-30); Chloride 103 mmol/L (98-107); Estimated Creatinine Clearance 23 ml/min; Glucose 210 mg/dl (70-99); Potassium 3.4 mmol/L (3.5-5.1); Sodium 136 mmol/L (135-145); Total Bilirubin 2.7 mg/dl (0.2-1.3); Total Protein 6.2 g/dl (6.3-8.2); eGFR 27.11
[2023-09-02 08:13] LABS: Glucose - Point of Care 240 mg/dl (70-99)
[2023-09-02 08:17] LABS: % Basophils 0.4 % (0-2); % Eosinophils 0.6 % (0-6); % Immature Granulocytes 2.8 % (0-0.5); % Lymphocytes 5.3 % (20.5-51.1); % Monocytes 16.3 % (1.7-9.3); % Neutrophils 74.6 % (42.2-75.2); Absolute Immature Granulocytes 0.2 10^3/uL (0-0.05); Absolute Lymphocytes 0.4 10^3/uL (1.2-3.4); Absolute Monocytes 1.2 10^3/uL (0.1-0.6); Absolute Neutrophils 5.4 10^3/uL (1.4-6.5); Hematocrit 24.9 % (39.0-52.0); Hemoglobin 9.2 g/dL (13.0-18.0); Mean Corp Hgb Conc. 36.9 g/dL (33.0-37.0); Mean Corpuscular Hgb 34.2 pg (27.0-31.0); Mean Corpuscular Volume 92.6 fL (80.0-94.0); Mean Platelet Volume 11.4 fL (7.4-10.4); Nucleated Red Blood Cells % 0 % (-); Platelet Count 38 10^3/uL (130-400); Red Blood Cell Count 2.69 10^6/uL (4.70-6.10); Red Cell Dist. Width 14.7 % (11.5-14.5); White Blood Cell Count 7.2 10^3/uL (4.8-10.8)
[2023-09-02] MEDS: ProAmatine 5 MG PO ×2 (08:49→11:56)
[2023-09-02] MEDS: FEOSOL 325 MG PO (08:49)
[2023-09-02] MEDS: XIFAXAN 550 MG PO (08:49)
[2023-09-02] MEDS: DUPHALAC/CHRONULAC 20 GRAMS PO (08:49)
[2023-09-02] MEDS: PROTONIX 40 MG PO (08:49)
[2023-09-02] MEDS: SANDOSTATIN 50 MCG IV (08:50)
[2023-09-02] MEDS: NOVOLOG FLEXPEN-LOW RESISTANCE 2 UNITS SC ×2 (08:50→11:58)
[2023-09-02] MEDS: VITAMIN D3 (cholecalciferol) 25 MCG PO (08:50)
[2023-09-02] MEDS: HYDROPHOR 1 APPLIC TOPICAL (09:06)
--- NOTE | 2023-09-02 09:37 | PTOTSP ---
Reviewed chart and noted plans to dc to home today on hospice. PT will sign off.
--- NOTE | 2023-09-02 10:10 | W.PN.HOSP.TC ---
Today's Communication/Plan
-
monitor vitals
see plan
plan for home hospice today
called daughter; left voicemail
time of discharge 38 minutes
Assessment / Plan
Assessment / Plan
General: Appears Chronically Ill
HEENT: NormoCephalic, Anicteric
Respiratory: Clear
Cardiac: S1/S2 and Regular Rhythm
GI: Other (fluid wave, large ascites, no tenderness)
Musculoskeletal: No Edema
Skin: Warm and Lesions (blister, dry on bottom of left foot, excoriations left ankle, erythema left ankle)
Neuro: AO x 3, No Motor Deficits and Nonfocal/grossly intact
Psych: Calm
Recurrent severe symptomatic ascites
s/p 10L para 7/; per labs concerning for SBP, fluid cx grew serratia. already on zosyn follow labs. on albumin
GI following
-hold PO Lasix and monitor BP, hold spironolactone for now. will make lasix prn for comfort
monitor for SBP
ID following
s/p para again 08/30
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
#MAURILIO (baseline is closer to 1.0)
Cr now 2.4
concern for hepatorenal syndrome, likely multifactorial due to cirrhosis, volume depletion, possible sepsis from cellulitis
-Nephro Cx appreciated
cw albumin; monitor; On midodrine, octreotide
nephrology following
Hyperammonemia
Continue with lactulose
Monitor
Recently declining mental status, MRI negative for any acute CVA. Could be secondary to declining status due to SBP, worsening renal function. No signs of psychosis at this time
Subjective complain of difficulty swallowing
Speech evaluation; VSE noted. Now on IDDS 6 diet with mildly thick liquids
Hyponatremia
Monitor
Hypokalemia
replete
Anemia, likely anemia of chronic disease
Monitor
Intermittent urinary retention
Continue to monitor
Bladder scan
Chest x-ray with hazy opacity on lateral view, could be suggestive of left lower lobe pneumonia or atelectasis
Currently denies any cough, does not appear to have pneumonia.
#Esophageal Varices, history of, no active bleeding
#LLE cellulitis
Lactic acidosis, trend lactate
improved
-now on cipro, which will also cover possible SBP
#Thrombocytopenia, chronic
Monitor platelets, likely secondary to cirrhosis
possible bifascicular block
Severe protein calorie Malnutrition
#Type 2 DM
hold Januvia
-hold Metformin
#Depression
# HTN, holding BP meds for now pending paracentesis and fluids
-monitor closely
# DJD
compression fx on lumbar spine; monitor
# Retinal vein occlusion, history of
#hx of CHF with preserved EF, not in exacerbation
#Atrial fibrillation,paroxysmal
-cont low dose BB with hold parameters
-monitor on tele
DVT proph-SCD's
discussed CODE STATUS again with patient and at this time he is agreeable for DNR
GI and I discussed with patient and his daughter regarding declining prognosis. Patient and daughter both agreeable on hospice evaluation. division merchandise manager consulted for hospice. Plan for home hospice today
Anticipated Discharge: Today
Subjective/Interval History
-
Date of Service: September 02, 2023
denies pain
Objective Data
-
Labs:
Laboratory Results
09/02/23
07:32
WBC 7.2
Hgb 9.2 L
Hct 24.9 L
Plt Count 38 L D
Sodium 136
Potassium 3.4 L
Chloride 103
Carbon Dioxide 19 L
BUN 68 H
Creatinine 2.4 H
Glucose 210 H
Calcium 8.8
Total Bilirubin 2.7 H
AST 18
ALT 15
Alkaline Phosphatase 87
Vital Signs:
Vital Signs
Temp Pulse Resp BP Pulse Ox
97.8 F 67 16 96/51 96
09/02/23 07:30 09/02/23 08:49 09/02/23 07:30 09/02/23 08:49 09/02/23 07:30
I&O
09/01/23 09/02/23 09/03/23
06:59 06:59 06:59
Intake Total 1790 / 1790 775 / 775
Output Total 1570 / 1570 830 / 830
Balance 220 / 220 -55 / -55
--- NOTE | 2023-09-02 10:23 | W.DCSUMMARY ---
Discharge Summary
Discharge Data
Date of Admission: 08/29/23
Date of Discharge: 09/02/23
-
Pending Results: No
Hospital Course
78 yo male with PMH significant for alcohol cirrhosis, recurrent ascites, esophageal varices, type 2 DM, skin cancer, nodular regenerative hyperplasia of liver, depression, HTN, DJD, retinal vein occlusion, CHF, atrial fib, RBBB came to the ED for
shortness of breath and worsening symptomatic ascites. He was seen by GI through out hospitalization. He underwent paracentesis where they removed 10L fluid. Culture from fluid was consistent with SBP. He was seen by ID who started antibiotics. He
also had MAURILIO for which nephrology was following. It was thought his worsening kidney function are related to end stage liver. He was then started on octreotide. Patient symptoms continue to get worse and then patient and family opted for hospice.
Patient was then seen by hospice and was accepted for home hospice. On 09/01 he was discharged on home hospice.
Discharge Plan
-
Patient Disposition: Home with Hospice
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
Spontaneous bacterial peritonitis
Dysphagia
Hyperammonemia
Cellulitis
Diet: Other diet
Additional Diets: Soft and bite sized diet with mildly thick liquids
Activity: With assistance and As tolerated
Driving Restrictions: No driving
Bathing Restrictions: None
Other Services: Hospice
Activity Restrictions/Additional Instructions:
Wound Care Instructions
knees, L rene and medial foot: clean with soap and water, smear of honey gel, adaptic and dry dressing change daily
moisturize legs with mineral oil daily.
To dry abrasions can apply silicone foam change q 3 days or leave open to air.
Can bring air chair cushion home upon discharge to use when sitting.
Follow up at wound care center if wounds not healing, call for an appointment.
Referrals:
Carlos Chaparro MD [Family Provider] - in less than 1 week
Prescriptions:
New
ciprofloxacin HCl 500 mg Tablet
500 mg PO Q24H Qty: 6 0RF
lactulose 20 gram/30 mL Solution
20 g PO TID Qty: 1200 0RF
white petrolatum [Hydrophor] 42 % Ointment
1 applic topical DAILY Qty: 100 0RF
Refresh Classic (PF) 1.4-0.6 % Dropperette
1 drops BOTH EYES QIDPRN PRN (Reason: dry eyes) Qty: 0 0RF
Xifaxan 550 mg Tablet
550 mg PO BID Qty: 30 0RF
Continued
trazodone 50 mg Tablet
50 mg PO HS PRN (Reason: sleep)
pantoprazole [Protonix] 40 mg tablet,delayed release (DR/EC)
40 mg PO DAILY
Changed
furosemide 20 MG tablet
40 mg PO DAILY PRN (Reason: Fluid Retention/Swelling) Qty: 0 0RF
Discontinued
metformin 500 MG tablet
500 mg PO BID
Januvia 100 MG tablet
100 mg PO DAILY
spironolactone 100 mg tablet
100 mg PO DAILY
ferrous sulfate [FeroSul] 325 mg (65 mg iron) Tablet
325 mg PO DAILY Qty: 100 0RF
carvedilol 3.125 mg Tablet
3.125 mg PO BID
cholecalciferol (vitamin D3) [Vitamin D3] 25 mcg (1,000 unit) Capsule
25 mcg PO DAILY
Discharge Orders:
Discharge Patient (As Directed); Ordered 09/02/23
Ordered By: David Edmond
Discharge Date and Time
Discharge Date/Time: 09/02/23 12:37
Print Language: [place]
--- NOTE | 2023-09-02 11:05 | CM ---
Reviewed the chart notes and spoke with the patient's daughter via telephone. The daughter will be home to receive the patient via S today. Hospice will be following. CM continues to be available to patient/family and is monitoring medical
plan for needs at discharge.
Plan: Discharge to home on Hospice.
[2023-09-02 11:20] VITALS: BP 113/57
[2023-09-02 11:58] LABS: Glucose - Point of Care 232 mg/dl (70-99)
== END 2023-09-02 12:37 | disposition hospice, home (50) | DRG 432 ==
LOC: 2 NORTH 07:34
PROVIDERS: Internal Medicine Gastroenterology; Nurse Practitioner Adult Health; Nurse Practitioner Family; Radiology Diagnostic Radiology; Student in an Organized Health Care Education/Training Program; ADMITTING PHYSICIAN Internal Medicine; ATTENDING PHYSICIAN Internal Medicine; CONSULT PHYSICIAN Internal Medicine; CONSULT PHYSICIAN Internal Medicine Infectious Disease; CONSULT PHYSICIAN Student in an Organized Health Care Education/Training Program; EMERGENCY PHYSICIAN Emergency Medicine; FAMILY PHYSICIAN Family Medicine
PROC: 0W9G3ZZ Drainage of Peritoneal Cavity, Percutaneous Approach (ICD-10-PCS; 2023-08-29)
DX: K70.31 Alcoholic cirrhosis of liver with ascites (principal); E43 Unspecified severe protein-calorie malnutrition; K65.2 Spontaneous bacterial peritonitis; K76.7 Hepatorenal syndrome; N17.9 Acute kidney failure, unspecified; E87.1 Hypo-osmolality and hyponatremia; L03.116 Cellulitis of left lower limb; I50.32 Chronic diastolic (congestive) heart failure; I85.10 Secondary esophageal varices without bleeding; E72.20 Disorder of urea cycle metabolism, unspecified; K76.6 Portal hypertension; J98.11 Atelectasis; E11.9 Type 2 diabetes mellitus without complications; I11.0 Hypertensive heart disease with heart failure; R13.10 Dysphagia, unspecified; E87.6 Hypokalemia; I48.0 Paroxysmal atrial fibrillation; D69.6 Thrombocytopenia, unspecified
CPT/HCPCS: 88305; 49083; 70551; 71046; 74230; 80053; 81003; 81015; 82042; 82140; 82150; 82962; 83036; 83605; 83615; 83690; 83735; 83880; 83935; 84157; 84300; 84484; 85025; 85610; 85730; 87015; 87040; 87070; 87186; 87205; 88112; 89051; 92523; 92611; 93005; 96374; 97162; 97166; 97530; 97535; 99285; P9047